=== PATIENT | female | born 1960 | race Hispanic/Latino ===

== ENCOUNTER 2022-06-04 08:38 | Emergency (ER) | payer OTHER, SELFPAY ==
--- NOTE | ~2022-06-04 | CT_ITS ---
EXAMINATION: CT abdomen pelvis w con DATE: 06/04/2022 10:25 INDICATION: Right upper quadrant abdominal pain. TECHNIQUE: Computed tomography (CT) of the abdomen and pelvis was performed with 100 mL Omnipaque 350 intravenous contrast. Automated exposure control and iterative reconstruction technique were employe d. The dose-length product was 662.64 mGy-cm. COMPARISON: None. FINDINGS: The visualized portions of the lung bases demonstrate mild atelectasis. No pleural effusion . The heart size is normal. There are coronary artery calcifications. No pericardial effusion. The li reed is normal. Calcifications in the spleen are consistent with old granulomatous disease. The gallbl adder is normal in size. The pancreas and adrenal glands are normal. There is cortical thinning of th e kidneys. There is thickening in the endometrial complex to 3.6 cm. There is diffuse bladder wall th ickening, likely benign. The bladder is decompressed. The appendix is normal. There are no pathologic ally enlarged lymph nodes. There is no free intraperitoneal fluid. There is severe lumbar spondylosis . IMPRESSION: 1. Markedly thickened endometrial complex measuring 3.6 cm, which may be secondary to malignancy or c ervical stenosis. Reviewed, dictated and finalized at location A. IMPRESSION: 1. Markedly thickened endometrial complex measuring 3.6 cm, which may be second boby to malignancy or cervical stenosis.
[2022-06-04 08:43] VITALS: BP 149/77; PULSE 82; RESP 18; TEMP 36.6; O2SAT 97
[2022-06-04 09:16] LABS: Alanine Aminotransferase 17 U/L (6-35); Albumin Level 3.9 g/dL (3.5-5.1); Alkaline Phosphatase 75 U/L (38-126); Anion Gap 11 mmol/L (8-16); Aspartate Amino Transferase 22 U/L (14-36); Bilirubin,Total 0.4 mg/dL (0.2-1.3); Blood Urea Nitrogen 11 mg/dL (7-17); Calcium 9.1 mg/dL (8.4-10.2); Carbon Dioxide 29 mmol/L (22-30); Chloride 102 mmol/L (98-107); Estimated CRCL calculation 42 ml/min; Estimated Glomerular Filt Rate 56; Glucose 116 mg/dL (65-110); Lipase 92 U/L (23-300); Potassium 3.4 mmol/L (3.4-5.0); Sodium 142 mmol/L (137-145)
--- NOTE | 2022-06-04 09:21 | ED.ABDPAIN ---
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 Patient states that the pain is constant in nature, is present diffusely across her abdomen but is possibly worse in her right upper quadrant. She denies any nausea, vomiting, changes to her stools, fevers or chills. Denies any history of previous similar sensation. The nursing facility gave her MiraLAX and a pain pill without relief of her pain. Denies any dysuria, urgency or frequency. Patient has not had a Pap test in the last 40 years. No chest pain, shortness of breath, leg swelling. Related Data Allergies Allergy/AdvReac Type Severity Reaction Status Date / Time codeine Allergy Mild Vomiting Verified 06/04/22 11:47 Review of Systems Review of Systems: Gen: Denies fevers or chills Eyes: Denies eye pain or visual change ENT: Denies congestion Respiratory: Denies shortness of breath or cough CV: Denies chest pain or palpitations GI: Reports abdominal pain. Denies nausea, emesis or diarrhea denies burning, urgency, frequency or hematuria Musculoskeletal: Denies back pain or muscle pain Neuro: Denies numbness, tingling, weakness or focal weakness Skin: Denies rash Except as documented, all other systems reviewed and negative Exam Narrative: APPEARANCE: Well appearing, no pain in distress, well-nourished. Head: Normocephalic and atraumatic. EYES: PERRLA/EOMI, conjunctivae clear NOSE: No nasal drainage EARS: External ear normal in appearance THROAT: teeth are absent. NECK: Supple. No adenopathy, no masses. RESPIRATORY: Airway patent, respirations nonlabored. Clear to auscultation bilaterally, no rales, rhonchi, wheezing. CARDIOVASCULAR: Regular rate and rhythm without murmurs, rubs, or gallops. : Exam performed with abiodun Thornton. Moderate amount of thin vaginal discharge in the vault. Technically difficult pelvic exam given patient's positioning but visualized portion of cervix does not have any lesions. ABDOMINAL: No abdominal tenderness. No rebound tenderness or guarding. normoactive bowel sounds. MUSCULOSKELETAL: Extremities are warm and well-perfused. Moves all extremities well. No edema. NEURO: Normal speech. No focal neurologic deficits. SKIN: Skin is warm and dry. No rashes. PSYCHIATRIC: Normal affect/mood. Course Consultations Consultation #1: Spoke with Dr. Qiu, [facility], states that patient likely needs a hysteroscopy and D&C, will follow in the office Date: 06/04/22 Time: 13:13 Vital Signs Vital signs: Vital Signs Temperature 97.8 F 06/04/22 08:43 Pulse Rate 82 06/04/22 08:43 Respiratory Rate 18 06/04/22 08:43 Blood Pressure 149/77 H 06/04/22 08:43 Pulse Oximetry 97 06/04/22 08:43 Oxygen Delivery Room Air 06/04/22 08:43 Temperature 97.8 F 06/04/22 08:43 Pulse Rate 78 06/04/22 18:16 Respiratory Rate 18 06/04/22 18:16 Blood Pressure 136/79 06/04/22 18:16 Pulse Oximetry 100 06/04/22 18:16 Oxygen Delivery Room Air 06/04/22 08:43 MDM - Abdominal Pain MDM Narrative Medical decision making narrative: 61-year-old female with a history of Lilli's disease, breast cancer, has not received much gynecologic care in the past 40 years, here for evaluation of diffuse abdominal pain. She is nontoxic-appearing with normal vital signs, has no abdominal tenderness on exam. CT abdomen pelvis shows a thickened endometrial complex but no other acute disease to explain her abdominal pain. Patient feeling improved after Protonix in the ED. Basic labs unremarkable, no leukocytosis, lipase is normal, UA unremarkable. Pelvic exam reveals no obvious cervical lesion visibly the exam is technically difficult give
[2022-06-04 09:23] LABS: Basophils Percent Auto 0.4 % (0.2-1.2); Eosinophils Absolute Auto 0.1 K/mm3 (0-0.3); Eosinophils Percent Auto 0.7 % (0-4.4); Hematocrit 36.7 % (37.0-47.0); Hemoglobin 12.4 g/dL (12.0-15.0); Immature Granulocyte Absolute 0.08 K/mm3 (0.00-0.031); Immature Granulocyte Percent A 0.9 % (0-0.5); Lymphocytes Absolute Auto 3.51 K/mm3 (0.9-3.2); Mean Corpuscular HGB Conc 33.8 g/dl (32-36); Mean Corpuscular Hemoglobin 30.5 pg (26-34); Mean Corpuscular Volume 90.2 fl (80-100); Mean Platelet Volume 10.1 fl (7.4-10.4); Monocytes Absolute Auto 0.6 K/mm3 (0.1-0.6); Monocytes Percent Auto 6.8 % (2.6-8.5); Neutrophils Absolute Auto 4.3 K/mm3 (1.3-6.7); Neutrophils Percent Auto 50.2 % (45.5-73.1); Platelet Count Result 219 k/mm3 (150-375); Red Blood Count 4.07 M/mm3 (4.2-5.4); Red Cell Distribution Width 11.9 % (11.5-14.5); White Blood Count 8.6 K/mm3 (4.5-10.0)
[2022-06-04 10:19] LABS: Appearance Urine Clear (Clear); Bilirubin Urine Negative (Negative); Blood Urine Trace-lysed (Negative); Color Urine Yellow (Yellow); Glucose Urine UA Negative (Negative); Ketones Urine Negative (Negative); Leukocyte Esterase Ur Negative LEU/UL (Negative); Nitrate Urine Negative (Negative); Protein Urine Negative (Negative); Specific Grav Ur 1.015 (1.001-1.035); pH Urine 7.5 (5.0-9.0)
[2022-06-04 10:24] LABS: Squamous Epithelial Cell Urine Rare /hpf (Few); WBC Urine 0-3 /hpf
[2022-06-04 10:28] LABS: Add Urine Microscopic? YES
[2022-06-04] MEDS: PANTOPRAZOLE SODIUM IV 40 MG VIAL IV PUSH (10:57)
[2022-06-04] MEDS: KETOROLAC 15 MG/ML VIAL (*BKC) IV PUSH (11:47)
[2022-06-04 11:49] VITALS: BP 141/67; PULSE 79; RESP 20; O2SAT 100
--- NOTE | 2022-06-04 12:18 | ED.GENADULT ---
HPI - General Adult General Chief complaint: Abdominal Pain Stated complaint: R sided abd pain Time Seen by Provider: 06/04/22 08:53 Related Data Allergies Allergy/AdvReac Type Severity Reaction Status Date / Time codeine Allergy Mild Vomiting Verified 06/04/22 11:47 Course Vital Signs Vital signs: Vital Signs Temperature 97.8 F 06/04/22 08:43 Pulse Rate 82 06/04/22 08:43 Respiratory Rate 18 06/04/22 08:43 Blood Pressure 149/77 H 06/04/22 08:43 Pulse Oximetry 97 06/04/22 08:43 Oxygen Delivery Room Air 06/04/22 08:43 Temperature 97.8 F 06/04/22 08:43 Pulse Rate 79 06/04/22 11:49 Respiratory Rate 20 06/04/22 11:49 Blood Pressure 141/67 H 06/04/22 11:49 Pulse Oximetry 100 06/04/22 11:49 Oxygen Delivery Room Air 06/04/22 08:43 Medical Decision Making MDM Narrative Medical decision making narrative: IMPRESSION: 1. Markedly thickened endometrial complex measuring 3.6 cm, which may be secondary to malignancy or cervical stenosis. Vital Signs Vital Signs: Vital Signs Temperature 97.8 F 06/04/22 08:43 Pulse Rate 82 06/04/22 08:43 Respiratory Rate 18 06/04/22 08:43 Blood Pressure 149/77 H 06/04/22 08:43 Pulse Oximetry 97 06/04/22 08:43 Oxygen Delivery Room Air 06/04/22 08:43 Temperature 97.8 F 06/04/22 08:43 Pulse Rate 79 06/04/22 11:49 Respiratory Rate 20 06/04/22 11:49 Blood Pressure 141/67 H 06/04/22 11:49 Pulse Oximetry 100 06/04/22 11:49 Oxygen Delivery Room Air 06/04/22 08:43 Lab Data Result diagrams: 06/04/22 08:56 06/04/22 08:56 Labs: Lab Results 06/04/22 06/04/22 06/04/22 Range/Units 08:56 08:56 10:03 WBC 8.6 (4.5-10.0) K/mm3 RBC 4.07 L (4.2-5.4) M/mm3 Hgb 12.4 (12.0-15.0) g/dL Hct 36.7 L (37.0-47.0) % MCV 90.2 (80-100) fl MCH 30.5 (26-34) pg MCHC 33.8 (32-36) g/dl RDW 11.9 (11.5-14.5) % Plt Count 219 (150-375) k/mm3 MPV 10.1 (7.4-10.4) fl Immature Gran % (Auto) 0.9 H (0-0.5) % Neut % (Auto) 50.2 (45.5-73.1) % Lymph % (Auto) 41.0 (18.3-44.2) % [place] % (Auto) 6.8 (2.6-8.5) % Eos % (Auto) 0.7 (0-4.4) % Baso % (Auto) 0.4 (0.2-1.2) % Lymph # (Auto) 3.51 H (0.9-3.2) K/mm3 [place] # (Auto) 0.6 (0.1-0.6) K/mm3 Eos # (Auto) 0.1 (0-0.3) K/mm3 Baso # (Auto) 0.0 (0.0-0.1) K/mm3 Abs Immat Gran (auto) 0.08 H (0.00-0.031) K/mm3 Absolute Neuts (auto) 4.3 (1.3-6.7) K/mm3 Absolute Nucleated RBC 0.0 (0.0-0.012) K/mm3 Nucleated RBC % 0.0 (0.0-0.2) % Sodium 142 (137-145) mmol/L Potassium 3.4 (3.4-5.0) mmol/L Chloride 102 (98-107) mmol/L Carbon Dioxide 29 (22-30) mmol/L Anion Gap 11 (8-16) mmol/L BUN 11 (7-17) mg/dL Creatinine 1.00 (0.7-1.0) mg/dL Estim Creat Clear Calc 42 ml/min Estimated GFR 56 L (59 - ) Glucose 116 H (65-110) mg/dL Calcium 9.1 (8.4-10.2) mg/dL Total Bilirubin 0.4 (0.2-1.3) mg/dL AST 22 (14-36) U/L ALT 17 (6-35) U/L Alkaline Phosphatase 75 (38-126) U/L Total Protein 7.0 (6.3-8.2) g/dL Albumin 3.9 (3.5-5.1) g/dL Lipase 92 (23-300) U/L Urine Color Yellow (Yellow) Urine Appearance Clear (Clear) Urine pH 7.5 (5.0-9.0) Ur Specific [place] 1.015 (1.001-1.035) Urine Protein Negative (Negative) mg/dL Urine Glucose (UA) Negative (Negative) mg/dL Urine Ketones Negative (Negative) mg/dL Ur Blood (Man) Trace-lysed (Negative) Urine Nitrate Negative (Negative) Urine Bilirubin Negative (Negative) Urine Urobilinogen 1.0 (<2.0) mg/dL Leukocyte Esterase Rfl Negative (Negative) JOVANY/UL Urine RBC 3-5 H (0-2) /hpf Urine WBC 0-3 /hpf Ur Squamous Epith Cells Rare (Few) /hpf Discharge Plan Discharge Instructions: Antibiotic Form Follow-up/Referrals: UNKNOWN,DOCTOR [Primary Care Provider] -
[2022-06-04] MEDS: ONDANSETRON INJ 4 MG/2 ML VIAL IV PUSH (14:28)
[2022-06-04 18:16] VITALS: BP 136/79; PULSE 78; RESP 18; O2SAT 100
== END 2022-06-04 19:31 | disposition home or self-care (01) ==
PROVIDERS: Emergency Provider Emergency Medicine
DX: R93.89 Abnormal findings on diagnostic imaging of other specified body structures (principal); G10 Huntington's disease
CPT/HCPCS: 36415; 51701; 74177; 80053; 81001; 83690; 85025; 96374; 96375; 99284; C9113; J1885; J2405; Q9967

== ENCOUNTER 2022-07-08 22:33 | Emergency (ER) | payer OTHER, SELFPAY ==
--- NOTE | ~2022-07-08 | CT_ITS ---
EXAMINATION: CT cervical spine wo con DATE: 07/08/2022 23:59 INDICATION: Neck pain post fall TECHNIQUE: Computed tomography (CT) of the cervical spine was performed without intravenous contrast. Automated exposure control and iterative reconstruction technique were employed. The dose-length pro duct was 471.09 mGy-cm. COMPARISON: None FINDINGS: 15 degree cervicothoracic spondylosis measured between C6 and T3. Reversal of the normal cervical juve dosis. 2-3 mm anterolisthesis C5 on C6. 2 mm anterolisthesis C7 on T1. Vertebral body heights are nor mal. No fracture. Severe disc height loss at C6-C7. Moderate to severe disc height loss at C5-C6. Mod erate disc height loss at C7-T1 and C2-C3. Mild disc height loss at C3-C4 and C4-C5. Moderate osteoar thritis at the atlantoaxial articulation. The soft tissues of the visualized head and neck are unrema rkable. Mild groundglass opacities and some smooth septal line thickening at the apices of lungs cons istent with mild pulmonary edema stable tiny centrilobular nodules at the right apex. Largest measuri ng up to 3 mm. The following disc levels are specifically discussed: C2-C3: Small heterotopic ossicle along the posterior longitudinal ligament. There is altered left and severe right uncovertebral joint osteoarthritis. There is severe bilateral facet joint osteoarthriti s. There is mild to moderate right neural foraminal stenosis. There is mild central canal stenosis. C3-C4: There is moderate left and severe right uncovertebral joint osteoarthritis. Bilateral facet triny ints are fused with prominent hypertrophic changes. There is mild left and moderate to severe right n eural foraminal stenosis. There is mild central canal stenosis. C4-C5: Disc is bulging. There is mild left and moderate to severe right uncovertebral joint osteoarth ritis. There is severe bilateral facet joint osteoarthritis. There is mild left and moderate to sever e right neural foraminal stenosis. There is mild central canal stenosis. C5-C6: Punctate focus of calcification along the posterior longitudinal ligament. There is moderate l eft and severe right uncovertebral joint osteoarthritis. There is mild right and severe left facet triny int osteoarthritis. There is moderate right and minimal left neural foraminal stenosis. There is mini frederic central canal stenosis. C6-C7: Small posterior disc osteophyte complex. There is severe bilateral uncovertebral joint osteoar thritis. There is mild to moderate bilateral facet joint osteoarthritis. There is mild left and moder ate right neural foraminal stenosis. There is mild central canal stenosis. C7-T1: There is normal bilateral uncovertebral joint osteoarthritis. There is severe bilateral facet joint osteoarthritis. There is mild bilateral neural foraminal stenosis. There is no central canal st enosis. IMPRESSION: 1. Moderate to severe cervical spondylosis with no acute osseous abnormality. 2. Mild pulmonary edema at the apices of lungs with a few tiny centrilobular nodules at the right ape x measuring up to 3 mm which are likely infectious/inflammatory in etiology. If the patient is low ri sk for lung cancer, no follow-up is needed. If the patient is high risk (i.e., history of smoking or asbestos or significant radiation exposure), optional follow-up chest CT could be considered at 12 mo nths. Reviewed, dictated and finalized at location A. ETRICIAN/GYNECOLOGIST IMPRESSION: 1. Moderate to severe cervical spondylosis with no acute osseous abnormality. 2. Mild pulmonary edema at the apices of lungs with a few tiny centrilobular no dules at the right apex measuring up to 3 mm which are likely infectious/inflam matory in etiology. If the patient is low risk for lung cancer, no follow-up is needed. If the patient is high risk (i.e.,
--- NOTE | ~2022-07-08 | CT_ITS ---
EXAMINATION: CT thoracic lumbar wo con DATE: 07/08/2022 23:59 INDICATION: Back pain post fall TECHNIQUE: Computed tomography (CT) of the thoracic spine was performed without intravenous contrast. Automated exposure control and iterative reconstruction technique were employed. The dose-length pro duct was 471.09 mGy-cm. COMPARISON: None FINDINGS: 15 degree cervicothoracic levoscoliosis measured between C6 and T3. Mild compensatory dextrocurvature in the mid to upper thoracic spine. 2 mm anterolisthesis C7 on T1. Vertebral body heights are normal . No fracture. Moderate disc height loss at C7-T1 and at T3-T4, T4-T5 and T5-T6. Mild disc height los s at the remaining thoracic levels. No central canal stenosis.. Multilevel thoracic facet osteoarthri tis, moderate to severe with mild associated neural foraminal stenosis on the right at C7-T1 through T3-T4 as well as at T8-T9 and T10-T11 and on the left at C7-T1 and T3-T4. Mild septal line thickening at the apices consistent with mild pulmonary edema. Dependent atelectasis in the bilateral lower lob es. Calcified right hilar lymph nodes consistent with old granulomatous disease. No pathologically en larged mediastinal or hilar lymphadenopathy. Atherosclerotic coronary artery calcific lesions. Thorac ic aorta is normal in caliber. IMPRESSION: 1. Mild cervicothoracic levoscoliosis with mild to moderate thoracic spondylosis. No acute osseous ab normality. Reviewed, dictated and finalized at location A. IL SERGEANT IMPRESSION: 1. Mild cervicothoracic levoscoliosis with mild to moderate thoracic spondylosi s. No acute osseous abnormality.
[2022-07-08 22:43] VITALS: BP 129/60; PULSE 71; RESP 18; TEMP 36.6; O2SAT 98
--- NOTE | 2022-07-08 23:25 | ED.FALL ---
HPI - Fall General Chief Complaint: Fall Stated Complaint: BACK AND NECK PAIN S/P FALL Time Seen by Provider: 07/08/22 23:04 History of Present Illness HPI Narrative: 62-year-old female presenting to the emergency department from a local correction for evaluation after having a ground-level fall. Patient was attempting to reach her call light and stood up next to the bed. Patient lost her balance and fell backwards. She was able to catch her self a little bit on the bed and was able to lower herself down to the ground but patient states that she is having neck and back pain. Patient denies any associated numbness or weakness. Related Data Allergies Allergy/AdvReac Type Severity Reaction Status Date / Time codeine Allergy Mild Vomiting Verified 06/04/22 11:47 Review of Systems Review of Systems: CONSTITUTIONAL: Denies fever, chills, or sweats. EYES: Denies visual changes, redness, or discharge. ENT: Denies rhinorrhea, congestion, sore throat, or otalgia. CARDIOVASCULAR: Denies chest pain, palpitations, or edema. RESPIRATORY: Denies cough or dyspnea. GASTROINTESTINAL: Denies abdominal pain, nausea, vomiting, or diarrhea. GENITOURINARY: Denies dysuria or hematuria. SKIN: Denies rash or itching. MUSCULOSKELETAL: See HPI, back pain NEUROLOGIC: Denies headache, numbness, or weakness. Exam Narrative: APPEARANCE: Well appearing, no pain, no distress, well-nourished. HEAD: normocephalic, atraumatic. EYES: PERRLA/EOMI, conjunctivae clear. NOSE: Normal no drainage EARS:TMS clear with good light reflex. THROAT: Pharynx clear, no exudate. NECK: Supple. No adenopathy, no masses. RESPIRATORY: Airway patent, respirations nonlabored. Clear to auscultation bilaterally, no rales, rhonchi, wheezing. CARDIOVASCULAR: Regular rate and rhythm without murmurs rubs or gallops. ABDOMINAL: Soft, nontender, nondistended, normal bowel sounds MUSCULOSKELETAL: Moves all extremities. Lower back tenderness to palpation, no deformity or step-offs NEURO: Alert. Cranial nerves II through XII intact. Grossly intact SKIN: Warm, dry. Normal Color Course Course Emergency Course: Patient is wheelchair-bound does not ambulate. Patient was able to sit on the edge of the bed at her baseline. Patient's C-spine, thoracic spine and lumbar spine CT were negative for acute fractures. Patient was up and on the results of the work-up Vital Signs Vital signs: Vital Signs Temperature 97.8 F 07/08/22 22:43 Pulse Rate 71 07/08/22 22:43 Respiratory Rate 18 07/08/22 22:43 Blood Pressure 129/60 07/08/22 22:43 Pulse Oximetry 98 07/08/22 22:43 Oxygen Delivery Room Air 07/08/22 22:43 Temperature 97.8 F 07/08/22 22:43 Pulse Rate 88 07/09/22 03:16 Respiratory Rate 18 07/09/22 03:16 Blood Pressure 119/69 07/09/22 03:16 Pulse Oximetry 98 07/09/22 03:16 Oxygen Delivery Room Air 07/08/22 22:43 MDM - Fall Imaging Data Radiologist's impression: Overnight read CT C-spine impression: No acute fracture. Reversal of the normal cervical lordosis. Tre hypertrophic degenerative changes with disc space narrowing. There is a grade 1 spondylolisthesis of C4 on C5. Incidental findings: None. C T spot compression: No acute fracture. Mild hypertrophic degenerative changes with osteopenia. CT L-spine impression: No acute fracture. Hypertrophic degenerative changes most pronounced at L5-S1. Osteopenia Discharge Plan Discharge Clinical Impression: Back pain Patient Disposition: Home, Self-Care Condition: Stable Instructions: Antibiotic Form, Back Pain (ED) Additional Instructions: Have close follow-up with your primary care physician. If you have any worsening symptoms then please call or return to the emergency department. Follow-up/Referrals: UNKNOWN,DOCTOR [Primary Care Provider] -
--- NOTE | 2022-07-09 00:56 | PC.NURSE ---
called [facility] to request transport. ETA [id number]
--- NOTE | 2022-07-09 01:13 | PC.NURSE ---
[facility] called with eta update of [id number]
--- NOTE | 2022-07-09 02:59 | PC.NURSE ---
[facility] here
[2022-07-09 03:16] VITALS: BP 119/69; PULSE 88; RESP 18; O2SAT 98
== END 2022-07-09 03:22 ==
PROVIDERS: Emergency Provider Emergency Medicine
DX: S39.92XA Unspecified injury of lower back, initial encounter (principal); W18.39XA Other fall on same level, initial encounter
CPT/HCPCS: 72125; 72128; 72131; 99284

== ENCOUNTER 2022-11-07 08:11 | Emergency (ER) | payer OTHER, SELFPAY ==
[2022-11-07] VITALS (24 sets, daily range): BP systolic 118–165; BP diastolic 53–90; PULSE 72–100; RESP 12–23; TEMP 36.3; O2SAT 94–99
--- NOTE | ~2022-11-07 | CT_ITS ---
EXAMINATION: CT brain wo con DATE: 11/07/2022 08:50 INDICATION: Altered mental status TECHNIQUE: Computed tomography (CT) of the head was performed without intravenous contrast. Sagittal and coronal reconstructions were performed. The mA was adjusted according to patient size. Iterative reconstruction technique was employed. The dose-length product was 605.33 mGy-cm. COMPARISON: None FINDINGS: No acute intracranial hemorrhage, acute infarction or abnormal extra axial fluid collection. There is mild scattered white matter hypoattenuation consistent with chronic small vessel ischemic disease. S ymmetric prominence of the sulci and ventricles consistent with moderate age-appropriate diffuse cere bral volume loss. No mass/mass effect. Mild mucoperiosteal thickening the bilateral ethmoid sinuses. The orbits and mastoid air cells are normal. Intracranial calcified cerebral atherosclerosis is noted . IMPRESSION: 1. No acute intracranial process. 2. Age-related changes including moderate diffuse volume loss and mild scattered white matter hypoatt enuation consistent with chronic small vessel ischemic disease. Reviewed, dictated and finalized at location A. [facility] IMPRESSION: 1. No acute intracranial process. 2. Age-related changes including moderate diffuse volume loss and mild scattere d white matter hypoattenuation consistent with chronic small vessel ischemic di sease.
--- NOTE | ~2022-11-07 | XR_ITS ---
EXAMINATION: XR chest 1V portable DATE: 11/07/2022 08:39 INDICATION: Altered mental status and weakness TECHNIQUE: frontal view of the chest was obtained. COMPARISON: 09/12/2009 FINDINGS: Large multilobular calcified mass/masses projecting over the lateral right lower lung zone and beyond the pleural margins likely at the right breast. Mild curvilinear discoid atelectasis at the left cos tophrenic angle. No other airspace opacities, pulmonary edema, pleural effusion or pneumothorax. The cardiomediastinal silhouette is normal. Calcified right hilar lymph nodes consistent with old granulo matous disease. Multiple surgical clips at the right axilla. IMPRESSION: 1. Mild left basilar atelectasis. No other acute cardiopulmonary disease. 2. Large calcified mass/masses at the right breast potentially heterotopic ossification related to pr ior mastectomy in the surgical clips in the right axilla. Correlate with surgical history and with ma mmography. Reviewed, dictated and finalized at location A. [facility] IMPRESSION: 1. Mild left basilar atelectasis. No other acute cardiopulmonary disease. 2. Large calcified mass/masses at the right breast potentially heterotopic ossi fication related to prior mastectomy in the surgical clips in the right axilla. Correlate with surgical history and with mammography.
--- NOTE | 2022-11-07 08:20 | ECG_ITS ---
Measurements Intervals [place] Rate: 76 P: 27 IA: 147 QRS: 38 QRSD: 76 T: 58 QT: 398 QTc: 448 Interpretive Statements SINUS RHYTHM BORDERLINE T WAVE ABNORMALITY- ANTERIOR LEADS BASELINE ARTIFACT- II, III, AVF BORDERLINE ECG NO PREVIOUS ECG AVAILABLE FOR COMPARISON Electronically Signed On 11-07-2022 12:30:19 MERCHANDISE EXECUTIVE by Lion Harry D.O.
--- NOTE | 2022-11-07 08:26 | ED.GENADULT ---
HPI - General Adult General Chief complaint: Altered Mental Status Stated complaint: AMS History of Present Illness HPI narrative: 62-year-old female presenting to the ED from [facility]. Patient is normally wheelchair-bound alert and oriented. Patient's last known normal was sometime yesterday. Patient was found laying in bed and was primarily unresponsive. Patient was responding to adverse stimuli per EMS. No response to verbal stimuli. Patient does have history of Lilli's and frequent urinary tract infections. Related Data Allergies Allergy/AdvReac Type Severity Reaction Status Date / Time codeine Allergy Mild Vomiting Verified 06/04/22 11:47 Review of Systems Review of Systems: ROS unobtainable: Yes unobtainable due to medical condition Exam Narrative: APPEARANCE: Well appearing, no pain, no distress, well-nourished. HEAD: normocephalic, atraumatic. EYES: PERRLA/EOMI, conjunctivae clear. NOSE: Normal no drainage EARS:TMS clear with good light reflex. THROAT: Pharynx clear, no exudate. NECK: Supple. No adenopathy, no masses. RESPIRATORY: Airway patent, respirations nonlabored. Clear to auscultation bilaterally, no rales, rhonchi, wheezing. CARDIOVASCULAR: Regular rate and rhythm without murmurs rubs or gallops. ABDOMINAL: Soft, nontender, nondistended, normal bowel sounds MUSCULOSKELETAL: Moves all extremities. Strength/ROM intact, No edema, No calf tenderness. NEURO: Awake but unresponsive. Cranial nerves II through XII intact. Gag reflex intact SKIN: Warm, dry. Normal Color Course Course Emergency Course: 62 female history of Vincent's found to be minimally responsive this morning. 8:34 AM family arrived and the patient is now talking to the family. Family states that the patient is currently at her normal baseline. 11:12 AM patient is afebrile with no leukocytosis. Patient has a normally stable hemoglobin. Patient electrolytes are similar to her baseline with no abnormalities. UA shows no evidence of urinary tract infection. Patient was negative for COVID and for flu head CT showed no acute intracranial abnormality. Chest x-ray showed no acute cardiopulmonary normality. Patient is alert and appropriate at her baseline. Family suspects this may be due to anxiety due to a pending work-up for uterine cancer. While the family has been here patient has been alert appropriate and at her baseline. They are comfortable with the patient going back to the care facility. All questions and concerns addressed and patient is well-appearing Vital Signs Vital signs: Vital Signs Temperature 97.3 F L 11/07/22 08:08 Pulse Rate 78 11/07/22 08:08 Respiratory Rate 18 11/07/22 08:08 Blood Pressure 141/84 H 11/07/22 08:08 Pulse Oximetry 95 11/07/22 08:08 Oxygen Delivery Room Air 11/07/22 08:08 Temperature 97.3 F L 11/07/22 08:08 Pulse Rate 81 11/07/22 11:49 Respiratory Rate 20 11/07/22 11:49 Blood Pressure 122/73 11/07/22 11:49 Pulse Oximetry 96 11/07/22 11:49 Oxygen Delivery Room Air 11/07/22 08:08 Medical Decision Making Vital Signs Vital Signs: Vital Signs Temperature 97.3 F L 11/07/22 08:08 Pulse Rate 78 11/07/22 08:08 Respiratory Rate 18 11/07/22 08:08 Blood Pressure 141/84 H 11/07/22 08:08 Pulse Oximetry 95 11/07/22 08:08 Oxygen Delivery Room Air 11/07/22 08:08 Temperature 97.3 F L 11/07/22 08:08 Pulse Rate 81 11/07/22 11:49 Respiratory Rate 20 11/07/22 11:49 Blood Pressure 122/73 11/07/22 11:49 Pulse Oximetry 96 11/07/22 11:49 Oxygen Delivery Room Air 11/07/22 08:08 Lab Data Lab results reviewed: Yes I reviewed the patient's lab results. 11/07/22 08:29 11/07/22 08:29 Labs: Lab Results 11/07/22 11/07/22 11/07/22 Range/Units 08:29 08:29 08:29 WBC 8.0 (4.5-10.0) K/mm3 RBC 3.86 L (4.2-5.4) M/mm3 Hgb 12.0 (12.0-15.0) g/dL Hct 35.8 L (37.0-47.0) % MCV
--- NOTE | 2022-11-07 08:36 | PC.NURSE ---
Once family brought back to room pt began to cry and answer questions. RN assessed pt who is A & O x4 and answering questions. ERP brought to bedside per family pt is being worked up for uterine cancer and awaiting CT results. Family at bedside aware of plan as well as patient. Awaiting blood work results. Will continue to monitor.
[2022-11-07 08:38] LABS: Basophils Percent Auto 0.4 % (0.2-1.2); Eosinophils Absolute Auto 0.1 K/mm3 (0-0.3); Eosinophils Percent Auto 1.1 % (0-4.4); Hematocrit 35.8 % (37.0-47.0); Immature Granulocyte Absolute 0.04 K/mm3 (0.00-0.031); Immature Granulocyte Percent A 0.5 % (0-0.5); Lymphocytes Absolute Auto 2.77 K/mm3 (0.9-3.2); Lymphocytes Percent Auto 34.8 % (18.3-44.2); Mean Corpuscular HGB Conc 33.5 g/dl (32-36); Mean Corpuscular Hemoglobin 31.1 pg (26-34); Mean Corpuscular Volume 92.7 fl (80-100); Mean Platelet Volume 9.9 fl (7.4-10.4); Monocytes Absolute Auto 0.6 K/mm3 (0.1-0.6); Monocytes Percent Auto 7.5 % (2.6-8.5); Neutrophils Absolute Auto 4.4 K/mm3 (1.3-6.7); Neutrophils Percent Auto 55.7 % (45.5-73.1); Platelet Count Result 231 k/mm3 (150-375); Red Blood Count 3.86 M/mm3 (4.2-5.4)
[2022-11-07 08:40] LABS: Appearance Urine Clear (Clear); Bilirubin Urine Negative (Negative); Blood Urine Negative (Negative); Color Urine Yellow (Yellow); Glucose Urine UA Negative (Negative); Ketones Urine Negative (Negative); Leukocyte Esterase Ur Negative LEU/UL (Negative); Nitrate Urine Negative (Negative); Protein Urine Negative (Negative); Specific Grav Ur 1.011 (1.001-1.035); pH Urine 7.5 (5.0-9.0)
[2022-11-07 08:49] LABS: Alanine Aminotransferase 19 U/L (6-35); Albumin Level 3.7 g/dL (3.5-5.1); Alkaline Phosphatase 92 U/L (38-126); Anion Gap 6 mmol/L (8-16); Aspartate Amino Transferase 21 U/L (14-36); Bilirubin,Total 0.6 mg/dL (0.2-1.3); Blood Urea Nitrogen 11 mg/dL (7-17); Carbon Dioxide 29 mmol/L (22-30); Chloride 106 mmol/L (98-107); Estimated CRCL calculation 72 ml/min; Estimated Glomerular Filt Rate > 60; Glucose 118 mg/dL (65-110); Potassium 3.6 mmol/L (3.4-5.0); Sodium 141 mmol/L (137-145)
[2022-11-07 08:50] LABS: Prothrombin Time 13.1 Seconds (11.1-14.7)
[2022-11-07 08:51] LABS: Partial Thromboplastin Time 28.3 SECONDS (22.3-36.8)
[2022-11-07 08:53] LABS: Add Urine Microscopic? NO
[2022-11-07 09:14] LABS: Influenza A QL RT-PCR Negative (Negative); Influenza B QL RT-PCR Negative (Negative); RSV RNA, RT-PCR Negative (Negative); SARS-CoV-2 RNA PCR Negative
--- NOTE | 2022-11-07 11:39 | PC.NURSE ---
[facility] accepted halfway return eta 30min
--- NOTE | 2022-11-07 12:28 | PC.NURSE ---
Pt stated she was wet. RN performed pericare and placed pt in new depends. EMS arrived and pt was placed back into clothes from facility and assisted back over onto a stretcher.
== END 2022-11-07 12:29 ==
PROVIDERS: Emergency Provider Emergency Medicine
DX: R41.82 Altered mental status, unspecified (principal); F41.9 Anxiety disorder, unspecified; Z20.822 Contact with and (suspected) exposure to COVID-19; G10 Huntington's disease
CPT/HCPCS: 36415; 70450; 71045; 80053; 81003; 83605; 85025; 85610; 85730; 87040; 87637; 93005; 99284

== ENCOUNTER 2023-04-01 21:33 | Emergency (ER) | payer OTHER, SELFPAY ==
[2023-04-01 21:32] VITALS: BP 137/68; PULSE 75; RESP 19; TEMP 36.4; O2SAT 97
[2023-04-01 22:55] VITALS: BP 123/48; PULSE 74; RESP 12
[2023-04-01 22:55] LABS: Basophils Percent Auto 0.3 % (0.2-1.2); Eosinophils Absolute Auto 0.1 K/mm3 (0-0.3); Hematocrit 40.4 % (37.0-47.0); Hemoglobin 13.5 g/dL (12.0-15.0); Immature Granulocyte Absolute 0.05 K/mm3 (0.00-0.031); Immature Granulocyte Percent A 0.5 % (0-0.5); Lymphocytes Absolute Auto 2.98 K/mm3 (0.9-3.2); Lymphocytes Percent Auto 30.4 % (18.3-44.2); Mean Corpuscular HGB Conc 33.4 g/dl (32-36); Mean Corpuscular Hemoglobin 31.3 pg (26-34); Mean Corpuscular Volume 93.5 fl (80-100); Mean Platelet Volume 9.7 fl (7.4-10.4); Monocytes Absolute Auto 0.8 K/mm3 (0.1-0.6); Monocytes Percent Auto 8.1 % (2.6-8.5); Neutrophils Absolute Auto 5.8 K/mm3 (1.3-6.7); Neutrophils Percent Auto 59.7 % (45.5-73.1); Platelet Count Result 236 k/mm3 (150-375); Red Blood Count 4.32 M/mm3 (4.2-5.4); Red Cell Distribution Width 12.8 % (11.5-14.5); White Blood Count 9.8 K/mm3 (4.5-10.0)
[2023-04-01 23:02] VITALS: BP 125/59; PULSE 75; RESP 14
[2023-04-01 23:07] LABS: Lactic Acid Reflex 2.2 mmol/L (0.7-2.0); Prothrombin Time 13.2 Seconds (11.1-14.7)
[2023-04-01 23:08] LABS: Alanine Aminotransferase 18 U/L (6-35); Albumin Level 3.8 g/dL (3.5-5.1); Alkaline Phosphatase 87 U/L (38-126); Anion Gap 6 mmol/L (8-16); Aspartate Amino Transferase 22 U/L (14-36); Bilirubin,Total 0.4 mg/dL (0.2-1.3); Blood Urea Nitrogen 13 mg/dL (7-17); Calcium 9.5 mg/dL (8.4-10.2); Carbon Dioxide 30 mmol/L (22-30); Chloride 99 mmol/L (98-107); Estimated CRCL calculation 61 ml/min; Estimated Glomerular Filt Rate > 60; Glucose 128 mg/dL (65-110); Partial Thromboplastin Time 27.1 SECONDS (22.3-36.8); Potassium 3.3 mmol/L (3.4-5.0); Sodium 135 mmol/L (137-145)
[2023-04-01 23:17] VITALS: BP 117/59; PULSE 78; RESP 18
[2023-04-01 23:20] LABS: NT Pro B Type Natriuretic Pept 108 pg/mL (19.9-100); Troponin I < 0.012 ng/mL (0.000-0.034)
[2023-04-01 23:20] LABS: Add Urine Microscopic? YES; Appearance Urine Clear (Clear); Bacteria Urine None Seen /hpf; Bilirubin Urine Negative (Negative); Blood Urine Trace (Negative); Color Urine Yellow (Yellow); Glucose Urine UA Negative (Negative); Ketones Urine Negative (Negative); Leukocyte Esterase Ur Negative LEU/UL (Negative); Need Manual Microscopic Reviewed; Nitrate Urine Negative (Negative); Non Pathogenic Casts 0-2; Protein Urine Negative (Negative); RBC Urine 0-2 /hpf (0-2); Squamous Epithelial Cell Urine None seen /hpf (Few); WBC Urine 0-5 /hpf
[2023-04-01 23:32] VITALS: BP 113/69; PULSE 80; RESP 13
[2023-04-01 23:38] LABS: Procalcitonin 0.1 ng/mL
--- NOTE | 2023-04-02 00:07 | ED.GENADULT ---
HPI - General Adult General Chief complaint: Shortness of Breath/Dyspnea Stated complaint: SOB, +PE Time Seen by Provider: 04/01/23 22:08 History of Present Illness HPI narrative: Patient is a 62-year-old female who presents the emergency department with chief complaint of pulmonary embolism. The patient reports she has history of uterine cancer and had a CT scan done today at [facility] [place] patient reports that they called the residential and told her that she had a pulmonary embolism and recommended that she come to the emergency department. Related Data Allergies Allergy/AdvReac Type Severity Reaction Status Date / Time codeine Allergy Mild Vomiting Verified 06/04/22 11:47 Review of Systems Review of Systems: A 10 system review of systems was completed on the patient and is negative except for what is stated in the HPI. Nursing and ancillary documentation was reviewed. Exam Narrative: GENERAL: Well-appearing, well-nourished, and in no acute distress. HEAD: Normocephalic, atraumatic. EYES: PERRLA and EOMI. ENT: Nares clear, no rhinorrhea or epistaxis. Mucous membranes moist. NECK: Supple. CHEST: Clear to auscultation. No respiratory distress. HEART: Regular rate and rhythm. No murmur heard. Normal peripheral pulses. ABDOMEN: Soft, nontender, nondistended, normal active bowel sounds. EXTREMITIES: Normal range of motion. No edema. SKIN: Warm, dry, no rash. NEURO: No focal deficits. Alert and oriented x3. PSYCH: Normal mood and affect. Course Vital Signs Vital signs: Vital Signs Temperature 36.4 C 04/01/23 21:32 Pulse Rate 75 04/01/23 21:32 Respiratory Rate 19 04/01/23 21:32 Blood Pressure 137/68 04/01/23 21:32 Pulse Oximetry 97 04/01/23 21:32 Oxygen Delivery Room Air 04/01/23 21:32 Temperature 36.4 C 04/01/23 21:32 Pulse Rate 75 04/01/23 21:32 Respiratory Rate 19 04/01/23 21:32 Blood Pressure 137/68 04/01/23 21:32 Pulse Oximetry 97 04/01/23 21:32 Oxygen Delivery Room Air 04/01/23 21:48 Medical Decision Making [facility] Narrative Medical decision making narrative: Differential diagnosis includes pulmonary embolism, She will imaging studies from [employer] [facility] were obtained which showed a small subsegmental pulmonary embolism. Laboratory studies were obtained here that showed negative troponin negative BNP negative procalcitonin. The patient is currently showing no signs of hemodynamic compromise given the patient has not been having any new symptoms in the pulmonary embolism was found incidentally patient restarted on a DOAC and received a dose of Lovenox in the emergency department. Vital Signs Vital Signs: Vital Signs Temperature 36.4 C 04/01/23 21:32 Pulse Rate 75 04/01/23 21:32 Respiratory Rate 19 04/01/23 21:32 Blood Pressure 137/68 04/01/23 21:32 Pulse Oximetry 97 04/01/23 21:32 Oxygen Delivery Room Air 04/01/23 21:32 Temperature 36.4 C 04/01/23 21:32 Pulse Rate 75 04/01/23 21:32 Respiratory Rate 19 04/01/23 21:32 Blood Pressure 137/68 04/01/23 21:32 Pulse Oximetry 97 04/01/23 21:32 Oxygen Delivery Room Air 04/01/23 21:48 Lab Data 04/01/23 22:36 04/01/23 22:36 Labs: Lab Results 04/01/23 04/01/23 Range/Units 22:36 22:46 WBC 9.8 (4.5-10.0) K/mm3 RBC 4.32 (4.2-5.4) M/mm3 Hgb 13.5 (12.0-15.0) g/dL Hct 40.4 (37.0-47.0) % MCV 93.5 (80-100) fl MCH 31.3 (26-34) pg MCHC 33.4 (32-36) g/dl RDW 12.8 (11.5-14.5) % Plt Count 236 (150-375) k/mm3 MPV 9.7 (7.4-10.4) fl Immature Gran % (Auto) 0.5 (0-0.5) % Neut % (Auto) 59.7 (45.5-73.1) % Lymph % (Auto) 30.4 (18.3-44.2) % [place] % (Auto) 8.1 (2.6-8.5) % Eos % (Auto) 1.0 (0-4.4) % Baso % (Auto) 0.3 (0.2-1.2) % Lymph # (Auto) 2.98 (0.9-3.2) K/mm3 [place] # (Auto) 0.8 H (0.1-0.6) K/mm3 Eos # (Auto) 0.1 (0-0.3) K/mm3 Baso # (Auto) 0.0
[2023-04-02] MEDS: ENOXAPARIN 80 MG/0.8 ML SYRINGE SUB-Q (00:55)
[2023-04-02 01:52] LABS: Reflex Lactic Acid Yes or No Add Lactic
== END 2023-04-02 01:54 ==
PROVIDERS: Emergency Provider Emergency Medicine; PCP Hospitalist
DX: I26.99 Other pulmonary embolism without acute cor pulmonale (principal); Z85.42 Personal history of malignant neoplasm of other parts of uterus
CPT/HCPCS: 36415; 80053; 81001; 83605; 83735; 83880; 84145; 84484; 85025; 85610; 85730; 96372; 99284; J1650

== ENCOUNTER 2023-06-12 07:36 | Emergency (ER) | payer MEDICARE, MEDICAID, SELFPAY ==
[2023-06-12] VITALS (16 sets, daily range): BP systolic 140–173; BP diastolic 81–97; PULSE 77; RESP 16; TEMP 36.4; O2SAT 95–100
--- NOTE | ~2023-06-12 | CT_ITS ---
EXAMINATION: CT brain wo con DATE: 06/12/2023 08:30 INDICATION: Head injury. TECHNIQUE: Computed tomography (CT) of the head was performed without intravenous contrast. The mA wa s adjusted according to patient size. Iterative reconstruction technique was employed. The dose-lengt h product was 605.33 mGy-cm. COMPARISON: Head CT 11/07/2022 FINDINGS: There is diffuse brain volume loss. There are scattered areas of low attenuation in the cer ebral white matter. There is no intracranial hemorrhage, acute infarction, or abnormal intracranial m ass lesion. The ventricles are normal in size. There is a right posterior scalp hematoma. There is mi ld mucosal thickening in the paranasal sinuses. The orbits are normal. The mastoid air cells are norm al. IMPRESSION: 1. Stable moderate nonspecific cerebral white matter disease, which likely represents chronic small v essel ischemic disease. Reviewed, dictated and finalized at location A. IMPRESSION: 1. Stable moderate nonspecific cerebral white matter disease, which likely repr esents chronic small vessel ischemic disease.
--- NOTE | ~2023-06-12 | CT_ITS ---
EXAMINATION: CT cervical spine wo con DATE: 06/12/2023 08:31 INDICATION: Head injury. Neck pain. TECHNIQUE: Computed tomography (CT) of the cervical spine was performed without intravenous contrast. Automated exposure control and iterative reconstruction technique were employed. The dose-length pro duct was 336.80 mGy-cm. COMPARISON: Cervical spine CT 07/08/2022 FINDINGS: There is kyphosis of cervical spine. There is 6 degrees dextrocurvature of cervical spine. There is 2 mm anterolisthesis of C3 on C4, C4 on C5, and C7 on T1. Vertebral body heights are normal. There is mildly decreased disc height at C2-C3 and C4-C5, severely decreased disc height at C5-C6 an d C6-C7, and mildly decreased disc height at C7-T1. The following disc levels are specifically discus sed: C2-C3: There is severe right and moderate left uncovertebral joint osteoarthritis. There is severe bi lateral facet joint osteoarthritis. There is mild bilateral neural foraminal stenosis. There is mild central canal stenosis. C3-C4: There is severe right and mild left uncovertebral joint hypertrophy. There is ankylosis of the facet joints with severe right and moderate left hypertrophy. There is moderate right and mild left neural foraminal stenosis. There is mild central canal stenosis. C4-C5: There is severe right and mild left uncovertebral joint osteoarthritis. There is severe bilate ral facet joint osteoarthritis. There is moderate right and mild left neural foraminal stenosis. Ther e is mild central canal stenosis. C5-C6: There is severe bilateral uncovertebral joint osteoarthritis. There is severe bilateral facet joint osteoarthritis. There is moderate right and mild left neural foraminal stenosis. There is mild central canal stenosis. C6-C7: There is severe bilateral uncovertebral joint osteoarthritis. There is moderate bilateral face t joint osteoarthritis. There is mild bilateral neural foraminal stenosis. There is mild central tomas l stenosis. C7-T1: There is no uncovertebral joint osteoarthritis. There is severe bilateral facet joint osteoart hritis. There is mild bilateral neural foraminal stenosis. There is no central canal stenosis. IMPRESSION: 1. No fracture. 2. Severe cervical spondylosis. Reviewed, dictated and finalized at location A.
--- NOTE | 2023-06-12 09:17 | ED.FALL ---
HPI - Fall General Chief Complaint: Fall Stated Complaint: GLF Time Seen by Provider: 06/12/23 08:12 History of Present Illness HPI Narrative: 63-year-old female presented to the emergency department from local [place] [facility] after having a fall from the [place] lift. Patient did strike the back of her head. Unknown loss of consciousness. Patient is at her baseline mental status per care facility. Patient does complain of head pain but denies any other pain or injury Related Data Allergies Allergy/AdvReac Type Severity Reaction Status Date / Time codeine Allergy Mild Vomiting Verified 06/12/23 07:44 Review of Systems Review of Systems: All systems reviewed & are unremarkable except as noted in HPI and below Exam Narrative: APPEARANCE: Well appearing, no pain, no distress, well-nourished. HEAD: normocephalic, atraumatic. EYES: PERRLA/EOMI, conjunctivae clear. NOSE: Normal no drainage NECK: Supple. No adenopathy, no masses. RESPIRATORY: Airway patent, respirations nonlabored. Clear to auscultation bilaterally, no rales, rhonchi, wheezing. CARDIOVASCULAR: Regular rate and rhythm without murmurs rubs or gallops. ABDOMINAL: Soft, nontender, nondistended, normal bowel sounds MUSCULOSKELETAL: Moves all extremities. Strength/ROM intact, No edema, No calf tenderness. NEURO: Alert. Cranial nerves II through XII intact. Grossly intact Course Course Emergency Course: 63-year-old female presented the emergency department for evaluation after having a fall from her heart rule out. Patient states she did have some posterior head pain. Head and neck CT were negative without any acute findings. Patient denies any other pain or injury. Patient's family was updated. Vital Signs Vital signs: Vital Signs Temperature 97.6 F 06/12/23 07:33 Pulse Rate 77 06/12/23 07:33 Respiratory Rate 16 06/12/23 07:33 Pulse Oximetry 97 06/12/23 07:33 Oxygen Delivery Room Air 06/12/23 07:33 Temperature 97.6 F 06/12/23 07:33 Pulse Rate 77 06/12/23 07:33 Respiratory Rate 16 06/12/23 07:33 Blood Pressure 152/90 H 06/12/23 09:30 Pulse Oximetry 99 06/12/23 09:31 Oxygen Delivery Room Air 06/12/23 07:33 MDM - Fall Differential Diagnosis Differential diagnosis: Likely other (Intracranial abnormality, skull fracture, cervical spine injury) Imaging Data Radiologist's impression: Impressions Head CT 06/12/23 08:46 IMPRESSION: 1. Stable moderate nonspecific cerebral white matter disease, which likely represents chronic small vessel ischemic disease. Cervical Spine CT 06/12/23 08:48 IMPRESSION: 1. No fracture. 2. Severe cervical spondylosis. Discharge Plan Discharge Clinical Impression: Head injury Patient Disposition: Home, Self-Care Condition: Stable Instructions: Antibiotic Form, Head Injury (ED) Additional Instructions: Have close follow-up with your primary care physician. If you have any worsening symptoms then please call or return to the emergency department. Prescriptions: No Action Eliquis DVT-PE Treat 30D Start 5 mg (74 tabs) tablets,dose pack See Rx Instructions .ROUTE .COMPLEX Qty: 74 0RF Rx Instructions: orally per package directions Follow-up/Referrals: Ganesh Rhodes MD [Primary Care Provider] -
--- NOTE | 2023-06-12 09:21 | PC.NURSE ---
Spoke with Marie HAWLEY and updated on pts conditiom
--- NOTE | 2023-06-12 09:22 | PC.NURSE ---
Spoke with pts daughter, per pts request, who states she will be coming to the hospital soon.
[2023-06-12] MEDS: ACETAMINOPHEN 325 MG TABLET 650 MG PO (10:56)
== END 2023-06-12 12:44 ==
PROVIDERS: Emergency Provider Emergency Medicine; PCP Hospitalist
DX: S09.90XA Unspecified injury of head, initial encounter (principal); Z79.01 Long term (current) use of anticoagulants; R90.82 White matter disease, unspecified; M47.812 Spondylosis without myelopathy or radiculopathy, cervical region; W17.89XA Other fall from one level to another, initial encounter
CPT/HCPCS: 70450; 72125; 99284; A9270

== ENCOUNTER 2023-09-07 09:41 | Emergency (ER) | payer MEDICARE, MEDICAID, SELFPAY ==
[2023-09-07] VITALS (7 sets, daily range): BP systolic 130–147; BP diastolic 62–70; PULSE 66–75; RESP 15–20; TEMP 36.8–37.2; O2SAT 95–99
--- NOTE | ~2023-09-07 | CT_ITS ---
Clinical Indication: Right middle lobe mass CT Scan of the Chest with Contrast: Technique: Contiguous sections were acquired throughout the chest after intravenous administration of 75 cc of Omnipaque 350. Dose reduction technique was used on this scan by utilizing automated exposu re control and iterative reconstruction technique. The dose-length product (DLP) was 259.10 mGy-cm. Findings: There is no evidence of any significant mediastinal, hilar or axillary lymphadenopathy. Densely calci fied right hilar lymph node present. There is no filling defect in the pulmonary arterial tree to sug gest pulmonary embolus. There is no evidence of aortic dissection or aneurysm. Aberrant right subclav albin artery noted. There is a densely calcified right breast mass, indenting the contour of the lung anteriorly, without parenchymal lesion. This is similar to prior x-ray dated 11/07/2022 given differences in phone technician nique. There is no evidence of pleural or pericardial effusion. 6 mm right basilar pulmonary nodule noted (axial image 95). There is an additional 6 mm right lower l obe pulmonary nodule the lung bases well (axial image 98). There is focal scarring or chronic atelect asis at the left lung base. Images through the upper abdomen reveal no abnormalities. Impression: Densely calcified right breast mass, which is probably unchanged since 11/07/2022. This likely represe nts heterotopic ossification or other chronic benign lesion. Two 6 mm right basilar pulmonary nodules, indeterminate. According to Fleischner Society criteria, fo r a low-risk patient, follow-up CT scan in 6-12 months recommended, then consider additional 18-[address] For a high-risk patients, follow-up CT scans at both 6-12 months and 18-24 months are recomme nded. Reviewed, dictated and finalized at location . RINTENDENT TESTS Impression: Densely calcified right breast mass, which is probably unchanged since 3. This likely represents heterotopic ossification or other chronic benign lesi on. Two 6 mm right basilar pulmonary nodules, indeterminate. According to Fleischne r Society criteria, for a low-risk patient, follow-up CT scan in 6-12 months re commended, then consider additional 18-[address] For a high-risk patients, f ollow-up CT scans at both 6-12 months and 18-24 months are recommended.
[2023-09-07 10:18] LABS: Basophils Percent Auto 0.3 % (0.2-1.2); Eosinophils Absolute Auto 0.1 K/mm3 (0-0.3); Eosinophils Percent Auto 0.7 % (0-4.4); Hematocrit 37.5 % (37.0-47.0); Hemoglobin 11.9 g/dL (12.0-15.0); Immature Granulocyte Absolute 0.04 K/mm3 (0.00-0.031); Immature Granulocyte Percent A 0.4 % (0-0.5); Lymphocytes Absolute Auto 2.61 K/mm3 (0.9-3.2); Lymphocytes Percent Auto 29.3 % (18.3-44.2); Mean Corpuscular HGB Conc 31.7 g/dl (32-36); Mean Corpuscular Hemoglobin 30.4 pg (26-34); Mean Corpuscular Volume 95.9 fl (80-100); Mean Platelet Volume 10.4 fl (7.4-10.4); Monocytes Absolute Auto 0.6 K/mm3 (0.1-0.6); Monocytes Percent Auto 6.7 % (2.6-8.5); Neutrophils Absolute Auto 5.6 K/mm3 (1.3-6.7); Neutrophils Percent Auto 62.6 % (45.5-73.1); Platelet Count Result 214 k/mm3 (150-375); Red Blood Count 3.91 M/mm3 (4.2-5.4); Red Cell Distribution Width 13.6 % (11.5-14.5); White Blood Count 8.9 K/mm3 (4.5-10.0)
--- NOTE | 2023-09-07 10:24 | ED.RECABL ---
HPI - Recheck/Abnormal Lab/Rx General Chief Complaint: Recheck/Abnormal Lab/Rx Stated Complaint: lung mass? Time Seen by Provider: 09/07/23 09:42 Source: patient and old records reviewed Mode of arrival: EMS Limitations: physical limitation and clinical condition History of Present Illness HPI narrative: Patient is a 63 y/o female, with PMH of Josephine's Disease, PE, breast CA, wheelchair bound, who presents to the ED via EMS with c/o abnormal CXR. Patient is a resident of [facility]. Per [facility] report, patient has had flu-like symptoms over last couple of days. They have not tested her for anything, but did start her on Tamiflu yesterday per med rec. They performed an outpatient chest x-ray today, which showed a right middle lobe mass versus consolidation. Recommended CT. Sent here for further evaluation. Patient denies significant difficulty breathing. Reports recent fevers. Denies chest pain. Related Data Allergies Allergy/AdvReac Type Severity Reaction Status Date / Time codeine Allergy Mild Vomiting Verified 09/07/23 10:14 Review of Systems Review of Systems: CONSTITUTIONAL: See HPI. CARDIOVASCULAR: See HPI. RESPIRATORY: See HPI. All systems reviewed & are unremarkable except as noted in HPI and below Exam Narrative: GENERAL: Chronically ill appearing, well-nourished, non-toxic, in no acute distress. HEAD: Normocephalic, atraumatic. RESPIRATORY: Airway patent, respirations nonlabored. No significant focal lung sounds. No distress, wheezing, stridor. CARDIOVASCULAR: Regular rate and rhythm without murmurs, rubs, or gallops. MUSCULOSKELETAL: No gross deformities. SKIN: Warm, dry, normal color. NEURO: Alert, answers some questions with yes/no, limited speech. No ataxic movements. No evidence of chorea. PSYCHIATRIC: Appropriate mood and affect. Normal interaction. Course Vital Signs Vital signs: Vital Signs Temperature 98.9 F 09/07/23 09:47 Pulse Rate 73 09/07/23 09:47 Respiratory Rate 18 09/07/23 09:47 Blood Pressure 130/68 09/07/23 09:47 Pulse Oximetry 98 09/07/23 09:47 Oxygen Delivery Room Air 09/07/23 09:47 Temperature 98.2 F 09/07/23 14:01 Pulse Rate 73 01/09/24 14:01 Respiratory Rate 18 09/07/23 14:01 Blood Pressure 145/70 H 09/07/23 14:01 Pulse Oximetry 99 09/07/23 14:01 Oxygen Delivery Room Air 09/07/23 09:47 MDM - Recheck/Abnormal Lab/Rx MDM Narrative Medical decision making narrative: Patient presented [facility] ED from local [facility] with report of abnormal chest x-ray. Chest x-ray report showed right middle lobe consolidation versus mass. Patient has had flu-like symptoms over the last several days. Will obtain lab and imaging to further evaluate. Cbc without leukocytosis. WBC 8.9. CMP unremarkable. Normal procalcitonin. Viral swabs negative. Negative for influenza. UA does appear slightly infectious. Will give dose of ceftriaxone and discharged on Keflex. Cultures obtained. CT chest showing 2 small pulmonary nodules as well as right breast mass which appears chronic and unchanged from imaging last year. Patient does have history of breast cancer. No evidence of focal consolidation. No parenchymal mass. Patient will be discharged back to [facility]. No indication for admission at this time. Vitals have remained stable. No evidence of sepsis of time. No other concerns by patient or family. Daughter was updated on care plan via ED nurse, advised pulmonary nodules will need further f/u imaging in the future. Medical Records Attestation: I reviewed the patient's medical records. Lab Data Attestation: I reviewed the patient's lab results. 09/07/23 10:13 09/07/23 10:13 Labs: Lab Results 09/07/23 09/07/23 09/07/23 Range/Units 10:13 11:20 12:16 WBC 8.9 (4.5-10.0) K/mm3 RBC 3.91 L (4.2-5.4) M/mm3 Hgb 11.9 L (12.0-15.0) g/dL Hct 37.5 (37.0-47.0) % MCV 95.9 (80-100) fl
[2023-09-07 10:28] LABS: Alanine Aminotransferase 26 U/L (6-35); Albumin Level 3.9 g/dL (3.5-5.1); Alkaline Phosphatase 95 U/L (38-126); Anion Gap 6 mmol/L (8-16); Aspartate Amino Transferase 28 U/L (14-36); Bilirubin,Total 0.5 mg/dL (0.2-1.3); Blood Urea Nitrogen 25 mg/dL (7-17); Calcium 9.2 mg/dL (8.4-10.2); Carbon Dioxide 30 mmol/L (22-30); Chloride 104 mmol/L (98-107); Estimated CRCL calculation 63 ml/min; Estimated Glomerular Filt Rate > 60; Glucose 129 mg/dL (65-110); Potassium 4.1 mmol/L (3.4-5.0); Sodium 140 mmol/L (137-145)
[2023-09-07 10:34] LABS: INR 1.5
[2023-09-07 10:35] LABS: Partial Thromboplastin Time 34.1 SECONDS (22.3-36.8)
[2023-09-07 10:55] LABS: Influenza A QL RT-PCR Negative (Negative); Influenza B QL RT-PCR Negative (Negative); RSV RNA, RT-PCR Negative (Negative); SARS-CoV-2 RNA PCR Negative (Negative)
[2023-09-07 11:12] LABS: Procalcitonin 0.1 ng/mL
--- NOTE | 2023-09-07 11:33 | PC.NURSE ---
Pt straight cath for UA. Less than 30 cc obtained, pus noted. Julianna MENA informed. Will attempted at a later time
[2023-09-07 11:38] LABS: Lactic Acid Reflex 1.4 mmol/L (0.7-2.0)
--- NOTE | 2023-09-07 11:52 | PC.NURSE ---
Pt daughter & emergency contact Alysa Black called inquiring about pt status. Daughter updated
[2023-09-07 13:20] LABS: Bacteria Urine 3+ /hpf; Bilirubin Urine Negative (Negative); Blood Urine 1+ (Negative); Color Urine Yellow (Yellow); Glucose Urine UA Negative (Negative); Ketones Urine Negative (Negative); Leukocyte Esterase Ur 1+ LEU/UL (Negative); Nitrate Urine Negative (Negative); Non Pathogenic Casts 0-2; Protein Urine Negative (Negative); Squamous Epithelial Cell Urine None seen /hpf (Few); pH Urine 8.5 (5.0-9.0)
[2023-09-07 13:23] LABS: Appearance Urine Slightly Cloudy (Clear); Specific Grav Ur 1.046 (1.001-1.035)
[2023-09-07 13:27] LABS: Add Urine Microscopic? YES
[2023-09-07] MEDS: SODIUM CHLORIDE 0.9% IV 1,000 ML 999 ML IV CONT (13:43)
== END 2023-09-07 14:35 ==
PROVIDERS: Emergency Provider Physician Assistant; PCP Hospitalist
DX: R91.8 Other nonspecific abnormal finding of lung field (principal); N63.10 Unspecified lump in the right breast, unspecified quadrant; N39.0 Urinary tract infection, site not specified; J06.9 Acute upper respiratory infection, unspecified; R91.1 Solitary pulmonary nodule; Z20.822 Contact with and (suspected) exposure to COVID-19; G10 Huntington's disease; Z86.711 Personal history of pulmonary embolism; Z85.3 Personal history of malignant neoplasm of breast; Z99.3 Dependence on wheelchair; Z79.01 Long term (current) use of anticoagulants
CPT/HCPCS: 36415; 71260; 80053; 81001; 83605; 84145; 85025; 85610; 85730; 87040; 87077; 87086; 87186; 87637; 96365; 99284; J0696; J7030; Q9967

== ENCOUNTER 2024-03-16 16:40 | Emergency (ER) | payer MEDICARE, MEDICAID, SELFPAY ==
[2024-03-16] VITALS (23 sets, daily range): BP systolic 98–115; BP diastolic 50–67; PULSE 77–89; RESP 14–26; TEMP 36.7; O2SAT 94–100
--- NOTE | ~2024-03-16 | CT_ITS ---
CT abdomen pelvis w con Ordering provider: Viktoria Jay PA-C History: 63 years Female with . generalized abd pain . Comparison: None. Technique: CT abdomen and pelvis with IV and without oral contrast. Automated exposure control and it erative reconstruction technique were employed. The dose-length product was 773.50 mGy-cm. 100 mL of Omnipaque 350 was given IV. Findings: VISUALIZED LOWER CHEST: Dependent atelectatic changes. Calcifications seen in the right anterior ches t wall UPPER ABDOMINAL ORGANS: Liver: Normal. Gallbladder: Normal. Spleen: Normal. Stomach/duodenum: Normal. Pancreas: Normal. Adrenals: Normal. Kidneys: Normal. PELVIC ORGANS: The bladder is normal. Hypodensity in the uterus with a small hyperdensity which may represent an endometrial carcinoma or fibroid or polyp further evaluation advised.. BOWEL AND MESENTERY: Colon: Mild sigmoid diverticulosis without diverticulitis. Redundant sigmoid colon is noted. Fecal ma terial is impacted in the rectum with slightly thickened wall of the rectum suggestive of proctitis. Clinical correlation advised. No evidence of appendicitis. Small Bowel: Normal. No obstruction. Peritoneum/mesentery: No free air or free fluid. No mesenteric lymphadenopathy. RETROPERITONEUM: Mild atheromatous disease of the abdominal aorta. Narrowing at the origin of the ce liac artery is seen. Small caliber of the IVC is also noted. No retroperitoneal lymphadenopathy. MUSCULOSKELETAL: Superficial soft tissues: The superficial soft tissues are normal. Bones: Age appropriate degenerative changes of the spine. Bilateral sacroiliacs. IMPRESSION: 1. No evidence of appendicitis, diverticulitis or intestinal obstruction. 2. Impacted fecal material in the colon with constipation. 3. Hypodensity in the uterus suggestive of a fluid with focal area of hypodensity. Evaluation for en dometrial carcinoma is advised. Other differential includes polyp and a fibroid. Reviewed, dictated and finalized at location A. IMPRESSION: 1. No evidence of appendicitis, diverticulitis or intestinal obstruction. 2. Impacted fecal material in the colon with constipation. 3. Hypodensity in the uterus suggestive of a fluid with focal area of hypodens ity. Evaluation for endometrial carcinoma is advised. Other differential includ es polyp and a fibroid.
[2024-03-16 17:14] LABS: Basophils Absolute Auto 0.1 K/mm3 (0.0-0.1); Basophils Percent Auto 0.6 % (0.2-1.2); Eosinophils Absolute Auto 0.1 K/mm3 (0-0.3); Eosinophils Percent Auto 1.5 % (0-4.4); Hematocrit 40.6 % (37.0-47.0); Hemoglobin 12.8 g/dL (12.0-15.0); Immature Granulocyte Absolute 0.03 K/mm3 (0.00-0.031); Immature Granulocyte Percent A 0.4 % (0-0.5); Lymphocytes Absolute Auto 2.82 K/mm3 (0.9-3.2); Lymphocytes Percent Auto 36.2 % (18.3-44.2); Mean Corpuscular HGB Conc 31.5 g/dl (32-36); Mean Corpuscular Hemoglobin 30.7 pg (26-34); Mean Corpuscular Volume 97.4 fl (80-100); Mean Platelet Volume 10.5 fl (7.4-10.4); Monocytes Absolute Auto 0.5 K/mm3 (0.1-0.6); Monocytes Percent Auto 5.9 % (2.6-8.5); Neutrophils Absolute Auto 4.3 K/mm3 (1.3-6.7); Neutrophils Percent Auto 55.4 % (45.5-73.1); Platelet Count Result 194 k/mm3 (150-375); Red Blood Count 4.17 M/mm3 (4.2-5.4); Red Cell Distribution Width 12.8 % (11.5-14.5); White Blood Count 7.8 K/mm3 (4.5-10.0)
--- NOTE | 2024-03-16 17:20 | PC.NURSE ---
care and report given to MARLEEN Lan. all questions answered.
[2024-03-16 17:25] LABS: Alanine Aminotransferase 24 U/L (6-35); Albumin Level 4.2 g/dL (3.5-5.1); Alkaline Phosphatase 98 U/L (38-126); Anion Gap 11 mmol/L (4-12); Aspartate Amino Transferase 35 U/L (14-36); Bilirubin,Total 0.5 mg/dL (0.2-1.3); Blood Urea Nitrogen 23 mg/dL (7-17); Carbon Dioxide 29 mmol/L (22-30); Chloride 102 mmol/L (98-107); Estimated CRCL calculation 60 ml/min; Estimated Glomerular Filt Rate > 60; Glucose 184 mg/dL (65-110); Lipase 94 U/L (23-300); Potassium 3.3 mmol/L (3.4-5.0); Sodium 142 mmol/L (137-145)
--- NOTE | 2024-03-16 18:12 | ECG_ITS ---
Test Date: 2024-03-16 19:14:09 Measurements Intervals [place] Rate: 82 P: 39 LA: 167 QRS: 60 QRSD: 83 T: 67 QT: 376 QTc: 440 Interpretive Statements SINUS RHYTHM NONSPECIFIC ST-T WAVE ABNORMALITY- DIFFUSE LEADS BASELINE ARTIFACT- I, II, III, AVR, AVL, AVF, V1-V6 BORDERLINE ECG No previous ECG available for comparison Electronically Signed On 03-16-2024 21:20:30 CDT by Lion Harry D.O.
--- NOTE | 2024-03-16 18:14 | ED.ABDPAIN ---
HPI - Abdominal Pain General Chief Complaint: Abdominal Pain Stated Complaint: abd pain Time Seen by Provider: 03/16/24 17:05 History of Present Illness HPI narrative: 63-year-old female with a history of Lilli's disease, COPD, GERD, hypothyroidism, hyperlipidemia, ovarian cancer presents to the emergency department from [facility] for abdominal pain. Per EMS the abdominal pain started around 1100 this morning, however IM the patient she said it has been going on for a few weeks. She states the pain is everywhere. She is unable to describe the pain. She has reported the ED nausea with emesis. Last bowel movement was a few days ago and normal per the patient. She denies diarrhea, fever, cough or congestion, chest pain or shortness of breath. She is A&O times 2-3 at baseline. Related Data Allergies Allergy/AdvReac Type Severity Reaction Status Date / Time codeine Allergy Mild Vomiting Verified 09/07/23 10:14 Review of Systems Review of Systems: All systems reviewed & are unremarkable except as noted in HPI and below Exam Narrative: GENERAL: Well-appearing, well-nourished, and in no acute distress. HEAD: Normocephalic, atraumatic. EYES: PERRLA and EOMI. ENT: Nares clear, no rhinorrhea or epistaxis. Mucous membranes moist. NECK: Supple. CHEST: Clear to auscultation. No respiratory distress. HEART: Regular rate and rhythm. No murmur heard. Normal peripheral pulses. ABDOMEN: Hyperactive bowel sounds. Abdomen soft with generalized tenderness. No rebound, guarding or rigidity. No CVA tenderness EXTREMITIES: Normal range of motion. No edema. SKIN: Warm, dry, no rash. NEURO: No focal deficits. Alert and oriented x2-3 - Able to tell me her name, knows she is at [facility], is able to tell me what brings her to the hospital. Course Vital Signs Vital signs: Vital Signs Pulse Rate 77 03/16/24 16:42 Respiratory Rate 19 03/16/24 16:42 Blood Pressure 114/66 03/16/24 16:42 Pulse Oximetry 98 03/16/24 16:42 Temperature 98.1 F 03/16/24 18:21 Pulse Rate 78 03/16/24 22:30 Respiratory Rate 20 03/16/24 22:30 Blood Pressure 113/50 L 03/16/24 22:30 Pulse Oximetry 95 03/16/24 22:30 MDM - Abdominal Pain MDM Narrative Medical decision making narrative: 63-year-old female presents emergency department for abdominal pain from local half-way. Triage vitals are stable. Exam is significant for the above. CBC without leukocytosis or anemia. Chemistries with mildly low potassium of 3.3, otherwise unremarkable. Potassium orally repleted. Magnesium normal. Urinalysis consistent with a UTI with pyuria 2150, 2+ leuk esterase, 3+ bacteria. Urine culture pending. Lipase is normal. EKG shows sinus rhythm with nonspecific ST wave abnormality diffusely, otherwise no ischemic changes. Troponin undetectable. CT abdomen pelvis shows impacted fecal material in the colon with constipation and hypodensity in the uterus suggestive of fluid within the focal area of hypodensity. Patient does have a known history of uterine cancer and is not undergoing treatment for this. Lactic acid mildly elevated 2.1. Workup discussed with patient and daughter who was now at bedside. Fluids provided repeat lactic did elevate from 2.1 to 2.4. Pt looks well on reevaluation. Will provide 500cc bolus and repeat lactic. Repeat lactic 1.9. She underwent fecal disimpaction in the ER with improvement and was given a soapsuds enema with a large bowel movement. On re-evaluation the patient states she feels much better and is ready to be discharged back to half-way. Will start her on Bactroim for UTI per previous urine culture and sensitivities and provide stool softener and MiraLax. Discussed bowel regimen. Encouraged close follow-up with PCP. Patient and daughter are agreeable to plan verbalized understanding. Discharged in stable condition. Lab Data 03/16/24 17:08 03/16/24 17:08
[2024-03-16 18:55] LABS: Troponin I < 0.012 ng/mL (0.000-0.034)
[2024-03-16] MEDS: SODIUM CHLORIDE 0.9% IV 1,000 ML 999 ML IV CONT (19:17)
[2024-03-16] MEDS: ONDANSETRON INJ 4 MG/2 ML VIAL IV PUSH (19:17)
[2024-03-16 19:29] LABS: Lactic Acid Reflex 2.1 mmol/L (0.7-2.0)
[2024-03-16 19:48] LABS: Appearance Urine Cloudy (Clear); Bacteria Urine 3+ /hpf; Bilirubin Urine Negative (Negative); Blood Urine Negative (Negative); Color Urine Yellow (Yellow); Glucose Urine UA Negative (Negative); Ketones Urine Negative (Negative); Leukocyte Esterase Ur 2+ LEU/UL (Negative); Nitrate Urine Negative (Negative); Non Pathogenic Casts 0-2; Protein Urine Negative (Negative); Specific Grav Ur 1.014 (1.001-1.035); Squamous Epithelial Cell Urine Occasional /hpf (Few); WBC Urine 21-50 /hpf (0-3)
[2024-03-16 19:50] LABS: Add Urine Microscopic? YES
[2024-03-16 22:19] LABS: Reflex Lactic Acid Yes or No Add Lactic
[2024-03-16 22:50] LABS: Lactic Acid 2.4 mmol/L (0.7-2.0)
[2024-03-16] MEDS: POTASSIUM CHLORIDE 20 MEQ PACKET (FOR LIQUID) PO (23:04)
[2024-03-16] MEDS: SODIUM CHLORIDE 0.9% IV 500 ML 999 ML IV CONT (23:04)
[2024-03-16 23:21] LABS: Magnesium 2.1 mg/dL (1.6-2.3)
[2024-03-17] VITALS: PULSE 82; RESP 24; O2SAT 95
[2024-03-17 00:01] VITALS: BP 106/65; PULSE 85; RESP 20; O2SAT 95
[2024-03-17 00:11] LABS: Lactic Acid Reflex 1.9 mmol/L (0.7-2.0)
[2024-03-17 00:27] VITALS: PULSE 84; RESP 19; O2SAT 93
[2024-03-17 00:30] VITALS: PULSE 84; RESP 23; O2SAT 99
[2024-03-17 00:31] VITALS: BP 112/52; PULSE 80; RESP 23; O2SAT 99
[2024-03-17 00:50] VITALS: BP 98/69; PULSE 68; RESP 16; O2SAT 98
--- NOTE | 2024-03-17 00:53 | PC.NURSE ---
obdulio nurse name ileana
== END 2024-03-17 00:53 ==
PROVIDERS: Emergency Provider Physician Assistant; PCP Hospitalist
DX: R10.84 Generalized abdominal pain (principal); K59.00 Constipation, unspecified; R82.998 Other abnormal findings in urine; J44.9 Chronic obstructive pulmonary disease, unspecified; E03.9 Hypothyroidism, unspecified; E78.5 Hyperlipidemia, unspecified; K21.9 Gastro-esophageal reflux disease without esophagitis; G10 Huntington's disease; Z85.43 Personal history of malignant neoplasm of ovary; Z79.01 Long term (current) use of anticoagulants; R93.89 Abnormal findings on diagnostic imaging of other specified body structures
CPT/HCPCS: 36415; 74177; 80053; 81001; 83605; 83690; 83735; 84484; 85025; 87086; 93005; 96361; 96374; 99284; A9270; J2405; J7030; J7040; Q9967

== ENCOUNTER 2024-07-13 14:14 | Emergency (ER) | payer MEDICARE, MEDICAID, SELFPAY ==
[2024-07-13] VITALS (12 sets, daily range): BP systolic 101–128; BP diastolic 52–74; PULSE 83–94; RESP 14–20; TEMP 36.4–36.7; O2SAT 94–99
--- NOTE | ~2024-07-13 | US_ITS ---
EXAM: PELVIC ULTRASOUND HISTORY: Lower abdominal pain with abnormal CT COMPARISON: . Reference is also made to the CT examination of the abdomen and pelvis performed on the same day and dating back to 06/04/2022. FINDINGS: UTERUS: 11.0 x 3.9 x 5.3 cm. The uterus is anteverted and anteflexed. The endometrial complex is markedly and irregularly thickened and calcified measuring 16 mm. Free fluid identified within fundus of the uterus. Despite prolonged interrogation, neither ovary was visualized (not uncommon in a patient of this age) . No free fluid is identified within the pelvis. IMPRESSION: Irregularly thickened and calcified endometrium with free fluid in an enlarged uterus. The differenti al diagnosis is quite broad, and includes endometrial polyps, endometrial hyperplasia, chronic endome tritis, atrophic endometrium an and endometrioid carcinoma. Given the time course of this finding (oc curring between 06/04/2022 and 03/16/2024) direct visualization and probable biopsy is recommended. Reviewed, dictated and finalized at location A. ATOR CORE TESTER IMPRESSION: Irregularly thickened and calcified endometrium with free fluid in an enlarged uterus. The differential diagnosis is quite broad, and includes endometrial matt yps, endometrial hyperplasia, chronic endometritis, atrophic endometrium an and endometrioid carcinoma. Given the time course of this finding (occurring betwe en 06/04/2022 and 03/16/2024) direct visualization and probable biopsy is recomme nded.
--- NOTE | ~2024-07-13 | CT_ITS ---
CLINICAL INDICATION: Hematuria COMPARISON: 4and dating back to 06/04/2022. TECHNIQUE: Multiple contiguous axial images of the abdomen and pelvis were performed following the ad ministration of with 100 mL Omnipaque-350 intravenous contrast The dose-length product (DLP) was 997.08 mGy-cm. Automated exposure control and iterative reconstruction technique were employed. FINDINGS/OBSERVATIONS: Visualized lower thorax: Round atelectasis within the left lung base. The remainder of the lung bases are clear. The heart is of normal size, without pericardial effusion. Bulky calcifications within the soft tissues of the right breast, unchanged from prior Liver: The liver enhances homogeneously and is not enlarged measuring 16 cm in longitudinal dimension. Gallbladder and biliary system: The gallbladder is only minimally distended, and otherwise unremarkable. Pancreas: Fatty atrophy of the pancreas is present without ductal dilatation Spleen: The spleen enhances homogeneously and is not enlarged measuring 8.4 cm in longitudinal dimension. Kidneys: The bilateral kidneys enhance symmetrically without hydronephrosis or renal calculi. Adrenal glands: Unremarkable. Gastrointestinal tract: Stool is identified distending the rectum with mural thickening and surrounding inflammatory change, findings consistent with fecal impaction. Appendix: The air-filled appendix is of normal caliber (axial series, images 89 through 112) Vasculature: Bulky calcifications within the abdominal aorta. Lymph nodes: No pathologically enlarged or morphologically suspicious lymph nodes within the retroperitoneum or at the root of the mesentery. Pelvic structures: The bladder is decompressed with a Bustamante catheter, limiting its evaluation. Air is present within the bladder, likely iatrogenic. Redemonstration of global enlargement of the uterus (for a patient of this age) with a markedly thick ened and heterogeneous endometrium for which a malignancy is suspected. Body wall and musculoskeletal: Moderate degenerative disease of the lower lumbar spine, with osteophyte formation, disc space narrow ing, endplate changes and vacuum phenomena. Facet arthropathy is also noted. IMPRESSION: Findings consistent with fecal impaction, as detailed above. Additional (and progressive) findings within the uterus for which a malignancy is suspected and direc t visualization is needed. Reviewed, dictated and finalized at location A. NG MACHINE OPERATOR IMPRESSION: Findings consistent with fecal impaction, as detailed above. Additional (and progressive) findings within the uterus for which a malignancy is suspected and direct visualization is needed.
--- NOTE | 2024-07-13 16:13 | ED_ITS ---
HPI - Female Genitourinary General Chief complaint: Urogenital-Female <Mele Jensen MD - Last Filed: 07/13/24 22:12> Stated complaint: hematuria <Mele Jensen MD - Last Filed: 07/13/24 22:12> Time Seen by Provider: 07/13/24 15:45 <Mele Jensen MD - Last Filed: 07/13/24 22:12> Source: patient and EMS <Mele Jensen MD - Last Filed: 07/13/24 22:12> Mode of arrival: EMS <Mele Jensen MD - Last Filed: 07/13/24 22:12> History of Present Illness HPI Narrative: PATIENT CAME FROM [facility] BY AMBULANCE WITH THE CHIEF COMPLAIN OF HEMATURIA STARTED TODAY. <Mele Jensen MD - Last Filed: 07/13/24 22:12> Related Data Allergies/Adverse reactions: Allergies Allergy/AdvReac Type Severity Reaction Status Date / Time codeine Allergy Mild Vomiting Verified 09/07/23 10:14 <Mele Jensen MD - Last Filed: 07/13/24 22:12> Review of Systems Review of Systems: All systems reviewed & are unremarkable except as noted in HPI and below <Mele Jensen MD - Last Filed: 07/13/24 22:12> [facility] Past Medical History Medical History: Medical History (Updated 07/13/24 @ 20:29 by Mele Jensen MD) Cancer of right breast (10/2007) Chronic obstructive pulmonary disease Depression Gove's disease Hyperlipidemia Hypertension <Mele Jensen MD - Last Filed: 07/13/24 22:12> Surgical History Surgical History: Surgical History (Updated 07/13/24 @ 20:04 by Kim Dan PA-C) History of bilateral carpal tunnel release History of colonoscopy History of right breast biopsy (12/20/07) wide local excision with sentinel lymph node biopsy History of tubal ligation <Mele Jensen MD - Last Filed: 07/13/24 22:12> Family History Family History: Family History (Updated 07/13/24 @ 20:04 by Kim Dan PA-C) Other Breast cancer <Mele Jensen MD - Last Filed: 07/13/24 22:12> Social History Social History: Social History (Updated 07/13/24 @ 20:00 by Kim Dan PA-C) Social History: Surrogate medical decision maker: Code status: Smoking packs per day: 1.5 Smoking cigarettes per day: 30.0 <Mele Jensen MD - Last Filed: 07/13/24 22:12> Exam Narrative: GENERAL APPEARANCE: WELL-DEVELOPED, WELL-NOURISHED SKIN: NORMAL COLOR HEAD: NORMOCEPHALIC, NONTRAUMATIC EYES: CLEAR CONJUNCTIVA ENT: OROPHARYNX NORMAL, EARS NORMAL, NOSE NORMAL NECK: SUPPLE, NONTENDER CHEST AND RESPIRATORY: AIRWAY PATENT, NO RESPIRATORY DISTRESS, NO ACCESSORY MUSCLE USE HEART: REGULAR RATE/RHYTHM ABDOMEN: SOFT, NONTENDER, NO ORGANOMEGALY, QUIET BOWEL SOUNDS , RECTAL EXAM, GUAIAC NEGATIVE VAGINAL EXAM SHOWED BLOODY OFFENSIVE ORDER DISCHARGE NEUROLOGIC: ALERT AND ORIENTED ?3, <Mele Jensen MD - Last Filed: 07/13/24 22:12> Course Consultations Consultation #1: DR PONCE <Mele Jensen MD - Last Filed: 07/13/24 22:12> Date: 07/13/24 <Mele Jensen MD - Last Filed: 07/13/24 22:12> Time: 19:17 <Mele Jensen MD - Last Filed: 07/13/24 22:12> Vital Signs Vital signs: Vital Signs Temperature 36.4 C 07/13/24 14:14 Pulse Rate 91 07/13/24 14:14 Respiratory Rate 14 07/13/24 14:14 Blood Pressure 112/64 07/13/24 14:14 Pulse Oximetry 95 07/13/24 14:14 Oxygen Delivery Room Air 07/13/24 14:14 Temperature 36.7 C 07/13/24 22:01 Pulse Rate 87 07/13/24 22:31 Respiratory Rate 19 07/13/24 22:31 Blood Pressure 122/68 07/13/24 22:31 Pulse Oximetry 94 07/13/24 22:31 Oxygen Delivery Room Air 07/13/24 14:14 <Mele Jensen MD - Last Filed: 07/13/24 22:12> Vital Signs Temperature 36.4 C 07/13/24 14:14 Pulse Rate 91 07/13/24 14:14 Respiratory Rate 14 07/13/24 14:14 Blood Pressure 112/64 07/13/24 14:14 Pulse Oximetry 95 07/13/24 14:14 Oxygen Delivery Room Air 07/13/24 14:14 Temperature 36.7 C 07/13/24 22:01 Pulse Rate 87 07/13/24 22:31 Respiratory Rate 19 07/13/24 22:31 Blood Pressure 122/68 07/13/24 22:31 Pulse Oximetry 94 07/13/24 22:31 Oxygen Delivery Room Air 07/13/24 14:14 <Tariq Altman MD - Last Filed: 07/13/24 23:47> MDM - Female Genitourinary MDM Narrative Medical decision making narrative: PATIENT PRESENTS WITH POSSIBLE HEMATURIA VITAL SIGNS ARE STABLE PHYSICAL EXAM IN SHOWING NO BLOOD IN THE URINE, RECTAL EXAM SHOWED NO BLOOD, GUAIAC NEGATIVE, PELVIC EXAM SHOWING BLOODY OFFICE OF ORDER DISCHARGE FROM THE VAGINA DIFFERENTIAL DIAGNOSIS INCLUDE: VAGINAL FISTULA, MALIGNANCY, ANEMIA BLOOD WORKUP TODAY INCLUDE CBC, CMP SHOWED WBC OF 10.2, HEMOGLOBIN 12.1 INR 1.3, POTASSIUM 3.0 GLUCOSE 154 URINALYSIS SHOWED no acute abnormality Patient's daughter who have the power of litigation attorney associate agreed to change code status to hospice and comfort measures only. She agreed to not to treat any active disease and requested to try to make the patient comfortable only. Our chief nurse had the same conversation with the patient's power of litigation attorney associate. Hospice referral ordered, waiting for hospice evaluation, Patient high likely will go back to retirement for hospice. Patient was signed out to Dr. Joseph at shift change <Mele Jensen MD - Last Filed: 07/13/24 22:12> PATIENT PRESENTS WITH POSSIBLE HEMATURIA VITAL SIGNS ARE STABLE PHYSICAL EXAM IN SHOWING NO BLOOD IN THE URINE, RECTAL EXAM SHOWED NO BLOOD, GUAIAC NEGATIVE, PELVIC EXAM SHOWING BLOODY OFFICE OF ORDER DISCHARGE FROM THE V AGINA DIFFERENTIAL DIAGNOSIS INCLUDE: VAGINAL FISTULA, MALIGNANCY, ANEMIA BLOOD WORKUP TODAY INCLUDE CBC, CMP SHOWED WBC OF 10.2, HEMOGLOBIN 12.1 INR 1.3, POTASSIUM 3.0 GLUCOSE 154 URINALYSIS SHOWED no acute abnormality Patient's daughter who have the power of litigation attorney associate agreed to change code status to hospice and comfort measures only. She agreed to not to treat any active disease and requested to try to make the patient comfortable only. Our chief nurse had the same conversation with the patient's power of litigation attorney associate. Hospice referral ordered, waiting for hospice evaluation, Patient high likely will go back to retirement for hospice. Patient was signed out to Dr. Altman at shift change hospice saw the patient in the emergency department and the patient will be discharged back to the facility and hospice will be involved in her care <Tariq Altman MD - Last Filed: 07/13/24 23:47> Differential Diagnosis Differential diagnosis: Likely other ( ABOVE) <Mele Jensen MD - Last Filed: 07/13/24 22:12> Medical Records Attestation: I reviewed the patient's medical records. <Mele Jensen MD - Last Filed: 07/13/24 22:12> Lab Data Attestation: I reviewed the patient's lab results. <Mele Jensen MD - Last Filed: 07/13/24 22:12> Result diagrams: 07/13/24 16:32 07/13/24 16:32 <Mele Jensen MD - Last Filed: 07/13/24 22:12> Labs: Lab Results 07/13/24 07/13/24 Range/Units 16:32 17:27 WBC 10.2 H (4.5-10.0) K/mm3 RBC 3.84 L (4.2-5.4) M/mm3 Hgb 12.1 (12.0-15.0) g/dL Hct 36.0 L (37.0-47.0) % MCV 93.8 (80-100) fl MCH 31.5 (26-34) pg MCHC 33.6 (32-36) g/dl RDW 13.4 (11.5-14.5) % Plt Count 246 (150-375) k/mm3 MPV 9.5 (7.4-10.4) fl Immature Gran % (Auto) 0.4 (0-0.5) % Neut % (Auto) 55.4 (45.5-73.1) % Lymph % (Auto) 35.8 (18.3-44.2) % Phillips % (Auto) 7.6 (2.6-8.5) % Eos % (Auto) 0.4 (0-4.4) % Baso % (Auto) 0.4 (0.2-1.2) % Lymph # (Auto) 3.64 H (0.9-3.2) K/mm3 Phillips # (Auto) 0.8 H (0.1-0.6) K/mm3 Eos # (Auto) 0.0 (0-0.3) K/mm3 Baso # (Auto) 0.0 (0.0-0.1) K/mm3 Abs Immat Gran (auto) 0.04 H (0.00-0.031) K/mm3 Absolute Neuts (auto) 5.6 (1.3-6.7) K/mm3 Absolute Nucleated RBC 0.000 (0.0-0.012) K/mm3 Nucleated RBC % 0.0 (0.0-0.2) % PT 16.8 H (11.1-14.7) Seconds INR 1.3 APTT 30.5 (22.3-36.8) Seconds Sodium 140 (137-145) mmol/L Potassium 3.0 L (3.4-5.0) mmol/L Chloride 99 (98-107) mmol/L Carbon Dioxide 34 H (22-30) mmol/L Anion Gap 7 (4-12) mmol/L BUN 11 D (7-17) mg/dL Creatinine 0.80 (0.7-1.0) mg/dL Estim Creat Clear Calc 57 ml/min Estimated GFR > 60 (59 - ) Glucose 154 H (65-110) mg/dL Lactic Acid 1.7 (0.7-2.0) mmol/L Calcium 9.0 (8.4-10.2) mg/dL Total Bilirubin 0.8 (0.2-1.3) mg/dL AST 25 (14-36) U/L ALT 12 (6-35) U/L Alkaline Phosphatase 119 (38-126) U/L Total Protein 7.0 (6.3-8.2) g/dL Albumin 3.8 (3.5-5.1) g/dL Urine Color Yellow (Yellow) Urine Appearance Clear (Clear) Urine pH 7.5 (5.0-9.0) Ur Specific [place] 1.007 (1.001-1.035) Urine Protein Negative (Negative) mg/dL Urine Glucose (UA) Negative (Negative) mg/dL Urine Ketones Negative (Negative) mg/dL Ur Blood (Man) Negative (Negative) Urine Nitrate Negative (Negative) Urine Bilirubin Negative (Negative) Urine Urobilinogen 1.0 (<2.0) mg/dL Leukocyte Esterase Rfl Negative (Negative) JOVANY/UL <Mele Jensen MD - Last Filed: 07/13/24 22:12> Lab Results 07/13/24 07/13/24 Range/Units 16:32 17:27 WBC 10.2 H (4.5-10.0) K/mm3 RBC 3.84 L (4.2-5.4) M/mm3 Hgb 12.1 (12.0-15.0) g/dL Hct 36.0 L (37.0-47.0) % MCV 93.8 (80-100) fl MCH 31.5 (26-34) pg MCHC 33.6 (32-36) g/dl RDW 13.4 (11.5-14.5) % Plt Count 246 (150-375) k/mm3 MPV 9.5 (7.4-10.4) fl Immature Gran % (Auto) 0.4 (0-0.5) % Neut % (Auto) 55.4 (45.5-73.1) % Lymph % (Auto) 35.8 (18.3-44.2) % Phillips % (Auto) 7.6 (2.6-8.5) % Eos % (Auto) 0.4 (0-4.4) % Baso % (Auto) 0.4 (0.2-1.2) % Lymph # (Auto) 3.64 H (0.9-3.2) K/mm3 Phillips # (Auto) 0.8 H (0.1-0.6) K/mm3 Eos # (Auto) 0.0 (0-0.3) K/mm3 Baso # (Auto) 0.0 (0.0-0.1) K/mm3 Abs Immat Gran (auto) 0.04 H (0.00-0.031) K/mm3 Absolute Neuts (auto) 5.6 (1.3-6.7) K/mm3 Absolute Nucleated RBC 0.000 (0.0-0.012) K/mm3 Nucleated RBC % 0.0 (0.0-0.2) % PT 16.8 H (11.1-14.7) Seconds INR 1.3 APTT 30.5 (22.3-36.8) Seconds Sodium 140 (137-145) mmol/L Potassium 3.0 L (3.4-5.0) mmol/L Chloride 99 (98-107) mmol/L Carbon Dioxide 34 H (22-30) mmol/L Anion Gap 7 (4-12) mmol/L BUN 11 D (7-17) mg/dL Creatinine 0.80 (0.7-1.0) mg/dL Estim Creat Clear Calc 57 ml/min Estimated GFR > 60 (59 - ) Glucose 154 H (65-110) mg/dL Lactic Acid 1.7 (0.7-2.0) mmol/L Calcium 9.0 (8.4-10.2) mg/dL Total Bilirubin 0.8 (0.2-1.3) mg/dL AST 25 (14-36) U/L ALT 12 (6-35) U/L Alkaline Phosphatase 119 (38-126) U/L Total Protein 7.0 (6.3-8.2) g/dL Albumin 3.8 (3.5-5.1) g/dL Urine Color Yellow (Yellow) Urine Appearance Clear (Clear) Urine pH 7.5 (5.0-9.0) Ur Specific [place] 1.007 (1.001-1.035) Urine Protein Negative (Negative) mg/dL Urine Glucose (UA) Negative (Negative) mg/dL Urine Ketones Negative (Negative) mg/dL Ur Blood (Man) Negative (Negative) Urine Nitrate Negative (Negative) Urine Bilirubin Negative (Negative) Urine Urobilinogen 1.0 (<2.0) mg/dL Leukocyte Esterase Rfl Negative (Negative) JOVANY/UL <Tariq Altman MD - Last Filed: 07/13/24 23:47> Imaging Data Radiologist's impression: Impressions Abdomen/Pelvis CT 07/13/24 18:31 IMPRESSION: Findings consistent with fecal impaction, as detailed above. Additional (and progressive) findings within the uterus for which a malignancy is suspected and direct visualization is needed. Pelvis Ultrasound 07/13/24 20:57 IMPRESSION: Irregularly thickened and calcified endometrium with free fluid in an enlarged uterus. The differential diagnosis is quite broad, and includes endometrial polyps, endometrial hyperplasia, chronic endometritis, atrophic endometrium an and endometrioid carcinoma. Given the time course of this finding (occurring between 06/04/2022 and 03/16/2024) direct visualization and probable biopsy is recommended. <Mele Jensen MD - Last Filed: 07/13/24 22:12> Critical Care Time Critical Care Time Critical Care Time: Yes <Mele Jensen MD - Last Filed: 07/13/24 22:12> Total Critical Care Time: 30 <Mele Jensen MD - Last Filed: 07/13/24 22:12> Discharge Plan Discharge Clinical Impression: Hypokalemia, DUB (dysfunctional uterine bleeding), Constipation, Uterine mass <Mele Jensen MD - Last Filed: 07/13/24 22:12> Patient Disposition: NH Fdc/Asst Living <Mele Jensen MD - Last Filed: 07/13/24 22:12> Condition: Stable <Mele Jensen MD - Last Filed: 07/13/24 22:12> Instructions: Antibiotic Form, Constipation (ED) <Mele Jensen MD - Last Filed: 07/13/24 22:12> Additional Instructions: hospice will be arranging care they should see you tomorrow <Mele Jensen MD - Last Filed: 07/13/24 22:12> Prescriptions: No Action sulfamethoxazole-trimethoprim 800-160 mg tablet 1 tablet PO Q12H Qty: 14 0RF docusate sodium 100 mg capsule 100 mg PO BID Qty: 60 0RF polyethylene glycol 3350 17 gram/dose powder 17 g PO DAILY PRN (Reason: constipation) Qty: 119 0RF Eliquis DVT-PE Treat 30D Start 5 mg (74 tabs) tablets,dose pack See Rx Instructions .ROUTE .COMPLEX Qty: 74 0RF Rx Instructions: orally per package directions cephalexin 500 mg capsule 500 mg PO Q6H 7 Days Qty: 28 0RF <Mele Jensen MD - Last Filed: 07/13/24 22:12> Follow-up/Referrals: Ganesh Rhodes MD [Primary Care Provider] - <Mele Jensen MD - Last Filed: 07/13/24 22:12> Time of Disposition: 23:47 <Mele Jensen MD - Last Filed: 07/13/24 22:12> 23:47 <Tairq Altman MD - Last Filed: 07/13/24 23:47>
[2024-07-13] MEDS: SODIUM CHLORIDE 0.9% IV 1,000 ML 150 ML IV CONT (16:34)
[2024-07-13 16:40] LABS: Basophils Percent Auto 0.4 % (0.2-1.2); Eosinophils Percent Auto 0.4 % (0-4.4); Hemoglobin 12.1 g/dL (12.0-15.0); Immature Granulocyte Absolute 0.04 K/mm3 (0.00-0.031); Immature Granulocyte Percent A 0.4 % (0-0.5); Lymphocytes Absolute Auto 3.64 K/mm3 (0.9-3.2); Lymphocytes Percent Auto 35.8 % (18.3-44.2); Mean Corpuscular HGB Conc 33.6 g/dl (32-36); Mean Corpuscular Hemoglobin 31.5 pg (26-34); Mean Corpuscular Volume 93.8 fl (80-100); Mean Platelet Volume 9.5 fl (7.4-10.4); Monocytes Absolute Auto 0.8 K/mm3 (0.1-0.6); Monocytes Percent Auto 7.6 % (2.6-8.5); Neutrophils Absolute Auto 5.6 K/mm3 (1.3-6.7); Neutrophils Percent Auto 55.4 % (45.5-73.1); Platelet Count Result 246 k/mm3 (150-375); Red Blood Count 3.84 M/mm3 (4.2-5.4); Red Cell Distribution Width 13.4 % (11.5-14.5); White Blood Count 10.2 K/mm3 (4.5-10.0)
[2024-07-13 16:52] LABS: INR 1.3; Prothrombin Time 16.8 Seconds (11.1-14.7)
[2024-07-13 16:53] LABS: Lactic Acid Reflex 1.7 mmol/L (0.7-2.0); Partial Thromboplastin Time 30.5 Seconds (22.3-36.8)
[2024-07-13 17:22] LABS: Alanine Aminotransferase 12 U/L (6-35); Albumin Level 3.8 g/dL (3.5-5.1); Alkaline Phosphatase 119 U/L (38-126); Anion Gap 7 mmol/L (4-12); Aspartate Amino Transferase 25 U/L (14-36); Bilirubin,Total 0.8 mg/dL (0.2-1.3); Blood Urea Nitrogen 11 mg/dL (7-17); Carbon Dioxide 34 mmol/L (22-30); Chloride 99 mmol/L (98-107); Estimated CRCL calculation 57 ml/min; Estimated Glomerular Filt Rate > 60; Glucose 154 mg/dL (65-110); Sodium 140 mmol/L (137-145)
[2024-07-13 17:44] LABS: Add Urine Microscopic? NO; Appearance Urine Clear (Clear); Bilirubin Urine Negative (Negative); Blood Urine Negative (Negative); Color Urine Yellow (Yellow); Glucose Urine UA Negative (Negative); Ketones Urine Negative (Negative); Leukocyte Esterase Ur Negative LEU/UL (Negative); Nitrate Urine Negative (Negative); Protein Urine Negative (Negative); Specific Grav Ur 1.007 (1.001-1.035); pH Urine 7.5 (5.0-9.0)
[2024-07-13] MEDS: POTASSIUM CHLORIDE 20 MEQ PACKET (FOR LIQUID) 40 MEQ PO (18:34)
--- NOTE | 2024-07-13 19:30 | PM.IMHP ---
H&P: HPI History of Present Illness Date/Time: 07/13/24 20:15 Chief Complaint: Blood in urine. Narrative: This is a 64-year-old female with history of Hennepin's disease, right breast cancer in 2007, hyperlipidemia, chronic obstructive pulmonary disease, gastroesophageal reflux disease, and hypothyroidism who presented to the emergency department via EMS from [place] for evaluation of blood in urine. Staff at the facility reportedly did a straight catheterization on the patient which was grossly bloody and she was sent in for evaluation. In the ED: Vital signs were stable on arrival. Urinalysis was clean. Pelvic exam showed a large amount of blood and yellow discharge in the uterine cavity. CT of the abdomen and pelvis showed evidence of fecal impaction enlarged endometrium which has been noted on imaging dating back to May 2022. Review of Systems Review of Systems: 12 systems were reviewed and are negative except for as per HPI. [facility] Past Medical History Medical History (Updated 07/13/24 @ 20:07 by Kim Dan PA-C) Cancer of right breast (10/2007) Chronic obstructive pulmonary disease Depression Hennepin's disease Hyperlipidemia Hypertension Surgical History Surgical History (Updated 07/13/24 @ 20:04 by Kim Dan PA-C) History of bilateral carpal tunnel release History of colonoscopy History of right breast biopsy (12/20/07) wide local excision with sentinel lymph node biopsy History of tubal ligation Family History Family History (Updated 07/13/24 @ 20:04 by Kim Dan PA-C) Other Breast cancer Social History Social History (Updated 07/13/24 @ 20:00 by Kim Dan PA-C) Social History: Surrogate medical decision maker: Code status: Smoking packs per day: 1.5 Smoking cigarettes per day: 30.0 Meds Home Medications and Allergies Home Medications Medication Instructions Recorded Confirmed Type apixaban 5 mg (74 tabs) tablets in See Rx Instructions PO .COMPLEX 04/02/23 Rx a dose pack (Eliquis DVT-PE Treat #74 ea 30D Start) cephalexin 500 mg capsule 500 mg PO Q6H 7 days #28 caps 09/07/23 Rx docusate sodium 100 mg capsule 100 mg PO BID #60 caps 03/16/24 Rx polyethylene glycol 3350 17 17 g PO DAILY PRN constipation 03/16/24 Rx gram/dose oral powder #119 grams sulfamethoxazole 800 1 tablet PO Q12H #14 tabs 03/16/24 Rx mg-trimethoprim 160 mg tablet Allergies Allergy/AdvReac Type Severity Reaction Status Date / Time codeine Allergy Mild Vomiting Verified 09/07/23 10:14 Vital Signs Vital Signs - 24 hr 07/13/24 14:14 07/13/24 14:22 07/13/24 14:46 Temperature 97.6 F Pulse Rate 91 88 83 Respiratory Rate 14 16 20 Blood Pressure 112/64 112/64 108/66 Pulse Oximetry 95 95 97 Oxygen Delivery Room Air 07/13/24 16:01 07/13/24 16:16 07/13/24 18:44 Temperature 97.9 F Pulse Rate 88 88 90 Respiratory Rate 18 20 16 Blood Pressure 101/52 L 112/66 109/73 Pulse Oximetry 95 96 95 Oxygen Delivery H&P: Results Labs Labs: Short CBC 07/13/24 Range/Units 16:32 WBC 10.2 H (4.5-10.0) K/mm3 Hgb 12.1 (12.0-15.0) g/dL Hct 36.0 L (37.0-47.0) % Plt Count 246 (150-375) k/mm3 BMP 07/13/24 16:32 Sodium 140 Potassium 3.0 L Chloride 99 Carbon Dioxide 34 H BUN 11 D Creatinine 0.80 Glucose 154 H Calcium 9.0 Liver Function 07/13/24 Range/Units 16:32 Total Bilirubin 0.8 (0.2-1.3) mg/dL AST 25 (14-36) U/L ALT 12 (6-35) U/L Alkaline Phosphatase 119 (38-126) U/L Albumin 3.8 (3.5-5.1) g/dL Urine 07/13/24 Range/Units 17:27 Urine Color Yellow (Yellow) Urine Appearance Clear (Clear) Urine pH 7.5 (5.0-9.0) Ur Specific [place] 1.007 (1.001-1.035) Urine Protein Negative (Negative) mg/dL Urine Glucose (UA) Negative (Negative) mg/dL Impressions Abdomen/Pelvis CT 07/13/24 18:31 IMPRESSION: Findings consistent with fecal impaction, as detailed above. Additional (and progressive) findings within the uterus for which a malignancy is suspected and direct visualization is needed. Assessment and Plan Assessment and plan (1) Abnormal uterine bleeding: Code(s): N93.9 - Abnormal uterine and vaginal bleeding, unspecified Status: Acute (2) Fecal impaction: Code(s): K56.41 - Fecal impaction Status: Acute Hospitalist MIPS Advance Care Plan I have confirmed that the patient's Advanced Care Plan is present, code status is documented, or surrogate decision maker is listed in patient medical record.: Yes Medication Reconciliation I have utilized all available resources to obtain, update and review the patients current medications (includes all prescriptions, OTC, herbals, cannabis, and nutritional supplements).: Yes
--- NOTE | 2024-07-13 19:48 | PC.NURSE ---
this RN asked EDP if they would like blood cultures to be drawn before administering any antibiotics. EDP did not want blood cultures
--- NOTE | 2024-07-13 19:56 | PC.NURSE ---
pt asked this RN to notify pt daughter, Alysa, that the pt will be admitted to the hospital
[2024-07-13] MEDS: PIPERACILLN/TAZ 3.375GM/NS50ML 3.375 GM/50 ML BAG IVPB (20:01)
--- NOTE | 2024-07-13 20:07 | PC.NURSE ---
when this RN spoke to the pt daughter, she informed that the pt has grade 3 uterine cancer that they choose not to treat. pt also has a HX of huntingtons
--- NOTE | 2024-07-13 20:16 | PC.NURSE ---
attempted to call pt facility to make them aware the pt would be admitted with no answer
--- NOTE | 2024-07-13 21:32 | PC.NURSE ---
called [facility] at this time and spoke to Brianna about getting this pt on hospice. Brianna asked for a referral be faxed over. referral was faxed at [phone] to [phone]
--- NOTE | 2024-07-13 21:48 | PC.NURSE ---
[facility] called back at this time to inform this RN that a [facility] nurse will come out and evaluate the patient. Kassy will be here at [phone]
--- NOTE | 2024-07-13 22:36 | PC.NURSE ---
[facility] nurse arrived at [phone]
--- NOTE | 2024-07-14 00:24 | PC.NURSE ---
this rn attempted nurses report x3 times unsuccessful.
== END 2024-07-14 00:23 ==
PROVIDERS: Emergency Provider Emergency Medicine; PCP Hospitalist
DX: E87.6 Hypokalemia (principal); N93.8 Other specified abnormal uterine and vaginal bleeding; K59.00 Constipation, unspecified; N85.9 Noninflammatory disorder of uterus, unspecified; Z85.3 Personal history of malignant neoplasm of breast; J44.9 Chronic obstructive pulmonary disease, unspecified; E78.5 Hyperlipidemia, unspecified; I10 Essential (primary) hypertension; G10 Huntington's disease
CPT/HCPCS: 36415; 74177; 76856; 80053; 81003; 83605; 85025; 85610; 85730; 96361; 96365; 99284; A9270; J2543; J7030; Q9967